=== PATIENT | female | born 1940 | race Caucasian/White ===

== ENCOUNTER 2021-01-29 13:46 | Emergency (ER) | payer MEDICARE, SELFPAY ==
--- NOTE | 2021-01-29 13:50 | ED.SKABFB ---
HPI - Skin/Abscess/Foreign Bdy General Chief complaint: Skin/Abscess/Foreign Body Stated complaint: Allergic Reaction Time Seen by Provider: 01/29/21 13:50 Source: patient and RN notes reviewed History of Present Illness HPI narrative: Patient is a 80-year-old female who presents the urgent care with complaints of allergic reaction due to the sun . Patient states that she is followed up with her doctor regarding these reactions in the past and believes it is from her amlodipine however she is continue to take the medication. States that the left eye redness and swelling with the patchy rash to the chest started on Friday and seems to be worsening. Patient states that this is happened in the past 3 different times and she is worried it skin to be her entire face with redness and swelling like it has in the past . Patient states that she has been taking Benadryl and using cold rags. Denies of any vision changes, nausea, vomiting, fever, shortness of breath or difficulty swallowing or breathing. No other acute complaints. No acute distress noted. Patient aware of the plan of care. Some parts of this dictation were generated by voice recognition software and may contain typographical and/or grammatical inaccuracies. Related Data Home Medications Medication Instructions Recorded Confirmed amiodarone 200 mg tablet 200 mg PO DAILY 04/05/20 06/09/20 apixaban 5 mg tablet 5 mg PO BID 04/05/20 06/09/20 atorvastatin 20 mg tablet 20 mg PO DAILY 04/05/20 06/09/20 citalopram 20 mg tablet 20 mg PO DAILY 04/05/20 06/09/20 clonidine HCl 0.1 mg tablet 0.1 mg PO DAILY 04/05/20 06/09/20 diltiazem HCl 180 mg 180 mg PO DAILY 04/05/20 06/09/20 capsule,extended release 24 hr furosemide 20 mg tablet 20 mg PO QAM 04/05/20 06/09/20 losartan 25 mg tablet 25 mg PO DAILY 04/05/20 06/09/20 amlodipine 2.5 mg PO DAILY 01/29/21 01/29/21 Allergies Allergy/AdvReac Type Severity Reaction Status Date / Time celecoxib Allergy sleepiness Verified 06/09/20 10:57 quinine Allergy N/A Verified 06/09/20 10:57 Review of Systems Review of Systems: Narrative: CONSTITUTIONAL: Denies fever, chills, or sweats. EYES: Denies visual changes, redness, or discharge. Reports of redness and swelling around the left eye ENT: Denies rhinorrhea, congestion, sore throat, or otalgia. CARDIOVASCULAR: Denies chest pain, palpitations, or edema. RESPIRATORY: Denies cough or dyspnea. GASTROINTESTINAL: Denies abdominal pain, nausea, vomiting, or diarrhea. GENITOURINARY: Denies dysuria or hematuria. SKIN: Reports of itchy rash to the chest MUSCULOSKELETAL: Denies back pain, joint pain, or myalgia. NEUROLOGIC: Denies headache, numbness, or weakness. All other systems reviewed are negative, except as documented in HPI. [facility] Past Medical History Medical History (Updated 01/29/21 @ 14:18 by DARELL Sue) Adhesive capsulitis of left shoulder Anxiety Arthritis Degenerative joint disease (DJD) of lumbar spine Depression Gallbladder disorder Heart attack Heart disease IBS (irritable bowel syndrome) Inflammatory arthritis Stroke Surgical History Surgical History History of total bilateral knee replacement Status post aortic coarctation stent placement Family History Family History Mother Heart disease Father Heart disease Social History Social History Smoking status: Never smoker Alcohol intake: never Comments At the time of my signature, I reviewed and agree with the nursing past medical, surgical, social, and family history. There is no relevant family history pertinent to the patient complaint. Exam Narrative: Exam Narrative: GENERAL: This is a well-nourished, well-developed patient, in no apparent distress. HEAD: normocephalic, atraumatic. EYES: PERRL. Sclera clear/white. Vision is grossly in
[2021-01-29 14:02] VITALS: BP 157/64; PULSE 59; RESP 18; O2SAT 95
[2021-01-29] MEDS: methylPREDNISolone ACETATE 80 MG/ML VIAL IM (14:16)
== END 2021-01-29 14:47 | disposition home or self-care (01) ==
PROVIDERS: Emergency Provider Nurse Practitioner Family
DX: L03.213 Periorbital cellulitis (principal); L50.0 Allergic urticaria; T46.1X5A Adverse effect of calcium-channel blockers, initial encounter; F41.9 Anxiety disorder, unspecified; M19.90 Unspecified osteoarthritis, unspecified site; M47.816 Spondylosis without myelopathy or radiculopathy, lumbar region; F32.9 Major depressive disorder, single episode, unspecified; I25.2 Old myocardial infarction; Z86.73 Personal history of transient ischemic attack (TIA), and cerebral infarction without residual deficits; Z96.653 Presence of artificial knee joint, bilateral
CPT/HCPCS: 96372; 99213; G0463; J1040

== ENCOUNTER → 2023-09-02 09:17 | Outpatient (CLI) | payer MEDICARE, SELFPAY ==
--- NOTE | ~2023-09-02 | MR_ITS ---
MRI of the cervical spine Clinical History: Radiculopathy Technique: Axial T2-weighted and gradient images, and sagittal T1-weighted, T2-weighted, and STIR ming ges were acquired. Findings: There is no fracture. Minimal grade 1 anterolisthesis of C4 over C5 present. No suspicious bone marrow signal abnormality seen. At C2-C3, there is no significant disc bulge or herniation. No spinal canal stenosis, cord compressio n, or definite neural foraminal narrowing. At C3-C4, there is osteophyte left paracentral region, with mild canal stenosis but no gerson cord com pression. There is left neural foraminal narrowing. Right neural foramen probably preserved. At C4-C5, there is mild canal stenosis without gerson cord compression or discrete disc bulge. There i s bilateral neural foraminal narrowing, and bilateral facet arthropathy. At C5-C6, there is disc osteophyte complex with canal stenosis and mild to moderate cord compression. There is bilateral neural foraminal narrowing with bilateral facet arthropathy. At C6-C7, there is disc osteophyte complex with canal stenosis and mild cord compression. There is bi lateral neural foraminal narrowing. No definite abnormal signal seen in the spinal cord. Paravertebral soft tissues are unremarkable. Impression: Advanced degenerative spondylosis particularly at C5-C6 and C6-C7, with canal stenosis and cord compr ession at these levels, as detailed above. Multilevel neural foraminal narrowing throughout cervical spine. Reviewed, dictated and finalized at [facility]. DOWN FURNACE OPERATOR Impression: Advanced degenerative spondylosis particularly at C5-C6 and C6-C7, with canal s tenosis and cord compression at these levels, as detailed above. Multilevel neural foraminal narrowing throughout cervical spine.
== END ==
PROVIDERS: PCP Family Medicine; Visit Provider Anesthesiology Pain Medicine
DX: M54.12 Radiculopathy, cervical region (principal); M43.02 Spondylolysis, cervical region; M48.02 Spinal stenosis, cervical region
CPT/HCPCS: 72141

== ENCOUNTER 2025-07-19 14:14 | Outpatient (CLI) | payer MEDICARE, SELFPAY ==
--- OUTSIDE RECORDS SUMMARY | 2025-02-28 08:20 | XMS_ITS ---
Author Organization [facility] Address [address] [place], [place] [id number] Care Team Providers Care School Curriculum Developer Name Role Phone MATT GONSALEZ Unavailable [phone] Karol Goodson Unavailable Unavailable Allergies Allergen (clinical drug ingredient) Drug/Non Drug Allergy documented on EMR Reaction Allergy Type Onset Date Status ibuprofen Advil Unknown Drug Allergy 02/02/2014 active aspirin Aspirin Unknown Drug Allergy 02/02/2014 active Motrin Unknown Drug Allergy 02/02/2014 active quinine Quinine Unknown Drug Allergy 02/02/2014 active REASON FOR VISIT Patient presents for at-risk foot care . The patient has painful toenails and calluses that are causing difficulty with ambulation and shoegear. The onset is gradual Medications Medication SIG (Take, Route, Frequency, Duration) Notes Start Date End Date Status atorvastatin 10 MG Oral Tablet ORAL atorvastatin 10 MG Oral TabletOriginal Medicationatorvastatin 10 MG Oral Tablet *Reorder from [facility] for eRx and Interaction Alerts* 7 Active citalopram 10 MG Oral Tablet ORAL citalopram 10 MG Oral TabletOriginal Medicationcitalopram 10 MG Oral Tablet *Reorder from [facility] for eRx and Interaction Alerts* 7 Active 24 HR diltiazem hydrochloride 120 MG Extended Release Oral Capsule [Cartia] ORAL 24 HR diltiazem hydrochloride 120 MG Extended Release Oral Capsule [Cartia]Original [id number] HR diltiazem hydrochloride 120 MG Extended Release Oral Capsule [Cartia] *Reorder from [facility] for eRx and Inter 7 Active apixaban 2.5 MG Oral Tablet [Eliquis] ORAL apixaban 2.5 MG Oral Tablet [Eliquis]Original Medicationapixaban 2.5 MG Oral Tablet [Eliquis] *Reorder from [facility] for eRx and Interaction Alerts* 7 Active Gabapentin 100 MG Oral Capsule ORAL gabapentin 100 MG Oral CapsuleOriginal Medicationgabapentin 100 MG Oral Capsule *Reorder from [facility] for eRx and Interaction Alerts* 7 Active pantoprazole 20 MG Delayed Release Oral Tablet ORAL pantoprazole 20 MG Delayed Release Oral TabletOriginal Medicationpantoprazole 20 MG Delayed Release Oral Tablet *Reorder from [facility] for eRx and Interaction Alerts* 7 Active Gabapentin 100 MG Capsule TAKE 1 CAPSULE BY MOUTH THREE TIMES A DAY; Duration: 30 Active Nitroglycerin 0.4 MG Tablet Sublingual Sublingual nitroglycerin 0.4 MG Sublingual TabletOriginal Medicationnitroglycerin 0.4 MG Sublingual Tablet 7 Active Gabapentin 300 MG Capsule 1 capsule Orally 2-3 times a day; Duration: 30 days Active Social History Social History Additional Details Category Social Info Options Details Migrated Social History Migrated Social History Smoking Status : Never smoked , History of tobacco use : Encounters Encounter Location Date Provider Diagnosis [facility] [address] [place] [id number] 02/28/2025 MATTRADHA BUCKLEYK Tinea unguium B35.1 ; Acquired keratosis [keratoderma] palmaris et plantaris L85.1 ; Other hereditary and idiopathic neuropathies G60.8 ; Atherosclerosis of [place] arteries of extremities with intermittent claudication, bilateral legs I70.213 ; Pain in right foot M79.671 ; Pain in left foot M79.672 and Type 2 diabetes mellitus with other diabetic neurological complication E11.49 Assessments Encounter Date Diagnosis (ICD Code) Assessment Notes Treatment Notes Treatment Clinical Notes Section Notes 02/28/2025 Tinea unguium (ICD-10 - B35.1) 02/28/2025 Acquired keratosis [keratoderma] palmaris et plantaris (ICD-10 - L85.1) 02/28/2025 Other hereditary and idiopathic neuropathies (ICD-10 - G60.8) 02/28/2025 Atherosclerosis of [place] arteries of extremities with intermittent claudication, bilateral legs (ICD-10 - I70.213) 02/28/2025 Pain in right foot (ICD-10 - M79.671) 02/28/2025 Pain in left foot (ICD-10 - M79.672) 02/28/2025 Type 2 diabetes mellitus with other diabetic neurological complication (ICD-10 - E11.49) B6 And B12: Recommend that the patient take over the counter Vitamin B6 and B12. B6 pills should be taken 2-3 times a day. Vitamin B12 should be taken once a day as an under the tongue lozenge. Patient is currently at 600mg per day. We will see how she does with 900mg per day Plan Of Treatment Treatment Notes Assessment Notes Type 2 diabetes mellitus wit h other diabetic neurological complication B6 And B12: Recommend that the patient take over the counter Vitamin B6 and B12. B6 pills should be taken 2-3 times a day. Vitamin B12 should be taken once a day as an under the tongue lozenge. Patient is currently at 600mg per day. We will see how she does with 900mg per day Next Appt Details Follow Up: 10 - 12 weeks, Re ason: At-Risk Foot care, sooner if problems develop. History and Physical Notes * HPI (History of Present Illness) Category Sub-Category Detail Notes Category Not es HPI General care Patient presents to the office for diabetic foot care. Patient states that their nails are thickened, elongated and painful. Patient states that it is aggravated by shoe gear. Onset is gradual., Patient is taking prescription blood thinners., Date last seen by Dr. Goodson was 08/2024., Initials [facility] Examination Category Sub-Category Detail Notes Category Not es Dermatologic Skin findings: Skin is thin, at rophic and lacking pedal hair Nail pathology: Nails 1, 2, 3, 4, an d 5 bilateral are elongated, thick, discolored, and dystrophic with subungual debris. They are painful to palpation Neurologic Gross sensation Grossly intact t o light touch. There is negative Tinel's sign Vascular Dorsalis pedis pulse: 1/4 bilateral Edema: No edema bilateral Capillary refill: greater than 3 secon ds Posterior tibial pulse: 0/4 bilateral Physical Examination General appearance: Alert, pleasant, well-nourished and in no acute distress Musculoskeletal Muscle Strength Muscle strength is 5/5 in regards to dorsiflexion, plantarflexion, inversion, and eversion in bilateral lower extremities Progress Notes * YOSHI PEDRO IDOB:[birth year] (84 yo F)Acc No.[id number]:02/28/2025 Patient: YOSHI RAMIREZ I Provider: Sudhir Gonsalez DPM :1940 A ge:84 Y S ex:Female Date:02/28/2025 Address:[address] [place] [address] [id number] Subjective: * Chief Complaints: * Kusum avalos presents for at-risk foot care . The patient has painful toenails and calluses that are causing difficulty with ambulation and shoegear. The onset is gradual * HPI: H PI: General care P bailey presents to the office for diabetic foot care. Patient states that their nails are thickened, elongated and painful. Patient states that it is aggravated by shoe gear. Onset is gradual., Patient is taking prescription blood thinners., Date last seen by Dr. Goodson was 08/2024., Initials [facility]. * ROS: G eneral / Constitutional: Patient denies c hills, fever, weight loss. ? M usculoskeletal: Patient denies w eakness, broken foot bone. P atient complains of a rthritis. P eripheral Vascular: Patient denies p ain / cramping in legs after exertion, ulceration of feet. S kin: Patient complains of f ungal nails, nail changes, calluses and corns. N eurologic: Patient complains of n umbness, burning/ tingling. ? * Family History: F ather: PRN - Father: :: Heart Disease < 55 yrs,,known absent , :: Arthritis,,known absent , :: Cancer,,known absent . M other: PRN - Mother: :: Arthritis,,known absent , :: Heart Disease < 55 yrs,,known absent . B rother: SIB - Brother: , :: Heart Disease < 55 yrs,,known absent , :: Cancer,,known absent . S ister: SIB - Sister: :: Cancer,,known absent , :: Heart Disease < 55 yrs,,known absent , :: Arthritis,,known absent . F amily History Verified.. * Social History: M igrated Social History: M igrated Social History: Smoking Status : Never smoked , History of tobacco use :. Social History Verified. * Medications: T akingNitroglycerin 0.4 MG Tablet Sublingual Sublingual , Notes to Pharmacist: nitroglycerin 0.4 MG Sublingual TabletOriginal Medicationnitroglycerin 0.4 MG Sublingual TabletGabapentin 100 MG Oral Capsule ORAL , Notes to Pharmacist: gabapentin 100 MG Oral CapsuleOriginal Medicationgabapentin 100 MG Oral Capsule *Reorder from [facility] for eRx and Interaction Alerts*24 HR diltiazem hydrochloride 120 MG Extended Release Oral Capsule [Cartia] ORAL , Notes to Pharmacist: 24 HR diltiazem hydrochloride 120 MG Extended Release Oral Capsule [Cartia]Original [id number] HR diltiazem hydrochloride 120 MG Extended Release Oral Capsule [Cartia] *Reorder from [facility] for eRx and Interapixaban 2.5 MG Oral Tablet [Eliquis] ORAL , Notes to Pharmacist: apixaban 2.5 MG Oral Tablet [Eliquis]Original Medicationapixaban 2.5 MG Oral Tablet [Eliquis] *Reorder from [facility] for eRx and Interaction Alerts*atorvastatin 10 MG Oral Tablet ORAL , Notes to Pharmacist: atorvastatin 10 MG Oral TabletOriginal Medicationatorvastatin 10 MG Oral Tablet *Reorder from [facility] for eRx and Interaction Alerts*citalopram 10 MG Oral Tablet ORAL , Notes to Pharmacist: citalopram 10 MG Oral TabletOriginal Medicationcitalopram 10 MG Oral Tablet *Reorder from [facility] for eRx and Interaction Alerts*pantoprazole 20 MG Delayed Release Oral Tablet ORAL , Notes to Pharmacist: pantoprazole 20 MG Delayed Release Oral TabletOriginal Medicationpantoprazole 20 MG Delayed Release Oral Tablet *Reorder from [facility] for eRx and Interaction Alerts*Gabapentin 100 MG Capsule TAKE 1 CAPSULE BY MOUTH THREE TIMES A DAY Gabapentin 300 MG Capsule 1 capsule Orally 2-3 times a day Medication List reviewed and reconciled with the patientTaking Nitroglycerin 0.4 MG Tablet Sublingual Sublingual , Notes to Pharmacist: nitroglycerin 0.4 MG Sublingual TabletOriginal Medicationnitroglycerin 0.4 MG Sublingual TabletTaking Gabapentin 100 MG Oral Capsule ORAL , Notes to Pharmacist: gabapentin 100 MG Oral CapsuleOriginal Medicationgabapentin 100 MG Oral Capsule *Reorder from [facility] for eRx and Interaction Alerts*Taking 24 HR diltiazem hydrochloride 120 MG Extended Release Oral Capsule [Cartia] ORAL , Notes to Pharmacist: 24 HR diltiazem hydrochloride 120 MG Extended Release Oral Capsule [Cartia]Original [id number] HR diltiazem hydrochloride 120 MG Extended Release Oral Capsule [Cartia] *Reorder from [facility] for eRx and InterTaking apixaban 2.5 MG Oral Tablet [Eliquis] ORAL , Notes to Pharmacist: apixaban 2.5 MG Oral Tablet [Eliquis]Original Medicationapixaban 2.5 MG Oral Tablet [Eliquis] *Reorder from [facility] for eRx and Interaction Alerts*Taking atorvastatin 10 MG Oral Tablet ORAL , Notes to Pharmacist: atorvastatin 10 MG Oral TabletOriginal Medicationatorvastatin 10 MG Oral Tablet *Reorder from [facility] for eRx and Interaction Alerts*Taking citalopram 10 MG Oral Tablet ORAL , Notes to Pharmacist: citalopram 10 MG Oral TabletOriginal Medicationcitalopram 10 MG Oral Tablet *Reorder from [facility] for eRx and Interaction Alerts*Taking pantoprazole 20 MG Delayed Release Oral Tablet ORAL , Notes to Pharmacist: pantoprazole 20 MG Delayed Release Oral TabletOriginal Medicationpantoprazole 20 MG Delayed Release Oral Tablet *Reorder from [facility] for eRx and Interaction Alerts*Taking Gabapentin 100 MG Capsule TAKE 1 CAPSULE BY MOUTH THREE TIMES A DAY Taking Gabapentin 300 MG Capsule 1 capsule Orally 2-3 times a day Medication List reviewed and reconciled with the patient * Allergies: A dvil: Allergy - Onset Date 02/02/2014spirin: Allergy - Onset Date 02/02/2014Motrin: Allergy - Onset Date 02/02/2014Quinine: Allergy - Onset Date 02/02/2014yesAllergies Verified. Objective: * Examination: P hysical Examination: General appearance: A lert, pleasant, well-nourished and in no acute distress. D ermatologic: Skin findings: S kin is thin, atrophic and lacking pedal hair. Nail pathology: N ails 1, 2, 3, 4, and 5 bilateral are elongated, thick, discolored, and dystrophic with subungual debris. They are painful to palpation. ? V ascular: Dorsalis pedis pulse: 1 /4 b ilateral. Posterior tibial pulse: 0 /4 bilateral. Capillary refill: g reater than 3 seconds. Edema: N o edema bilateral. N eurologic: Gross sensation G rossly intact to light touch. There is negative Tinel's sign. M usculoskeletal: Muscle Strength M uscle strength is 5/5 in regards to dorsiflexion, plantarflexion, inversion, and eversion in bilateral lower extremities. ? Assessment: * Assessment: 1. T inea unguium - B35.1 (Primary) 2 . A cquired keratosis [keratoderma] palmaris et plantaris - L85.1 3 . O ther hereditary and idiopathic neuropathies - G60.8 4 . A therosclerosis of [place] arteries of extremities with intermittent claudication, bilateral legs - I70.213 5 . P ain in right foot - M79.671 ? 6 . P ain in left foot - M79.672 7 . T ype 2 diabetes mellitus with other diabetic neurological complication - E11.49 Plan: * Treatment: * Preventive Medicine: Screenings: F all risk screening F all Risk Assessment: N o falls in the past year. * Follow Up: 1 0 - 12 weeks (Reason: At-Risk Foot care, sooner if problems develop.) Billing Information: * Visit Code: 34991 Office Visit, Est Pt., Level 3. * Procedure Codes: * Electronic signature of MATT GONSALEZ DPM on 07/19/2025 at 02:27 PM V BELT INSPECTOR Sign off status: Pending * Provider: Sudhir Gonsalez DPM Date: 0 02/28/2025 Generated for Bette anderson/Adithya/Gigi on: 1 02:27 PM V BELT INSPECTOR
--- OUTSIDE RECORDS SUMMARY | 2025-07-18 10:45 | XMS_ITS | Encounter Summary ---
Author Organization [facility] Address [address] [place] [address] Care Team Providers Care Radial Router Operator Name Role Phone Parthfred Karol Namrata Primary Care Provider [phone] Reason for Visit * Auth/Cert (Routine) Specialty Diagnoses / Procedures Referred By Rosendo carr Referred To Contact Home Health Services Referral ID Status Reason Start Date Expiration Date Visits Re quested Visits Authorized [id number] 1 1 Encounter Details Date Type Department Care Team (Late st Contact Info) Description 07/18/2025 10:45 AM EQUITY SALES ASSISTANT Home Care Visit [facility] [address] [place] [address] Bob Flores, VP CLINICAL VP CLINICAL HOME VISIT Social History Tobacco Use Types Packs/Day Years Used Date Smoking Tobacco: Never Passive Smoke Exposure: Never Smokeless Tobacco: Never Alcohol Use Standard Drinks/Week Comments Not Currently 0 (1 standard drink = 0.6 oz pur e alcohol) OASIS D0700: Social Isolation Answer Da te Recorded Frequency of experiencing loneliness or isolatio n Sometimes 07/11/2025 OASIS A1250: Transportation Answer Date Recorded Lack of Transportation (Medical) No 07/11/2025 Lack of Transportation (Non-Medical) No 07/11/2025 Patient Unable or Declines to Respond No 07/11/2025 OASIS B1300: Health Literacy Answer Luisito e Recorded Frequency of needing help to read materials from doctor or pharmacy Never 07/11/2025 PHQ-2 Answer Date Recorded Patient Health Questionnaire-2 Score 6 06/23/2025 AUDIT-C Answer Date Recorded Q1: How often do you have a drink containing alcohol? Never 07/04/2025 Q2: How many drinks containi ng alcohol do you have on a typical day when you are drinking? Patient does not drink Q3: How often do you have si x or more drinks on one occasion? 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[place], [place] Not on file Not on file Not on f ile documented as of this encounter Last Filed Vital Signs Vital Sign Reading Time Taken Comments Blood Pressure 142/92 07/18/2025 10:41 AM EQUITY SALES ASSISTANT Pulse 80 07/18/2025 10:41 AM EQUITY SALES ASSISTANT Temperature 36.2 C (97.2 F) 07/18/2025 10:41 AM EQUITY SALES ASSISTANT Respiratory Rate 18 07/18/2025 10:41 AM EQUITY SALES ASSISTANT Oxygen Saturation 97% 07/18/2025 10:41 AM EQUITY SALES ASSISTANT Inhaled Oxygen Concentration - - Weight - - Height - - Body Mass Index - - documented in this encounter Plan of Treatment Upcoming Encounters Date Type Department Care Team (Late st Contact Info) Description 07/20/2025 1:00 PM EQUITY SALES ASSISTANT Appointment [address] [place] [address] Bob Flores PTA 07/22/2025 9:00 AM EQUITY SALES ASSISTANT Appointment [facility] [address] [place] [address] Natasha Andrade RN [phone] (Work) 07/25/2025 9:00 AM EQUITY SALES ASSISTANT Appointment [address] [place] [address] Bob Flores VP CLINICAL 07/28/2025 11:00 AM EQUITY SALES ASSISTANT Appointment [facility] [address] [facility] [place] [address] Bob Flores, VP CLINICAL 08/01/2025 2:00 PM EQUITY SALES ASSISTANT Office Visit [facility] [place] [address] [place] [address] Amanda Singh, TAY[facility] [place] [address] [place] [address] 08/02/2025 10:00 AM EQUITY SALES ASSISTANT Appointment [place] [address] [facility] [place] [address] Bob Flores, VP CLINICAL 08/04/2025 8:00 AM EQUITY SALES ASSISTANT Appointment [place] [address] [facility] [place] [address] Sallie Hodgson, PT [address] [place] [address] 11/14/2025 2:40 PM CDT Office Visit [facility] - [facility] [address] [place] [address] Amari Garcia MD [address] [facility] [place] [address] [place] [address] 11/21/2025 1:20 PM CDT Office Visit [facility] [place] [address] [place] [address] Maria Alejandra Carreon PA-C [address] [place] [address] documented as of this encounter Visit Diagnoses Not on filedocumented in this encounter Additional Health Concerns Assessment Noted Time PHQ-9 Depression Total Score: 23 025 9:59 AM EQUITY SALES ASSISTANT documented as of this encounter Home Health Visit - Care Plan Visit Details Visit Type -VP CLINICAL - Home Visit Discipline -Physical Therapy Problems Problem Description Start Date Status Goals Interve ntions Decreased Functional Mobility Disciplines: PT 07/12/2025 Active 1 goal linked to scheduled/document ed intervention 1 goal intervention scheduled/documen vernon in this visit Collaboration of Care Disciplines: PT Collaboration for safe care. 07/12/2025 Active 2 goals linked to scheduled/document ed interventions 5 goal interventions scheduled/documen vernon in this visit PT - Fall Precautions Disciplines: PT Patient at risk for falls or has had recent fall occurrence(s). 07/12/2025 Active 1 goal linked to scheduled/document ed intervention 1 goal intervention scheduled/documen vernon in this visit Decreased Strength Disciplines: PT Decreased strength in LLE related to LLE injury. 07/12/2025 Active 1 goal linked to scheduled/document ed intervention 1 goal intervention scheduled/documen vernon in this visit Goals Goal Associated Problem Outcome Goal Met? Visit Notes Patient improves functional mobility Description: Pt to progress to independent gt in the house from living room to bathroom and back with rollator, improved LLE step length and stance by 07/25/25 Pt to progress to independent gt with rollator outside of the home for distance of 200' and greater includin g up and down one step with good balance by 08/05/25 Decreased Functional Mobility Progressing No Patient verbalizes understanding of medication regimen Description: Patient will verbalize understanding of medication regimen by 08/05/24. Collaboration of Care Met This Shift No Patient safety met through collaboration for safe care. Description: Clinicians will communicate patient care and safety needs during episode of care through 08/05/24. Collaboration of Care Met This Shift No Patient/caregiver maintains a safe environment. Description: Patient/caregiver will demonstrate ability to maintain a safe environment without injuries/falls by 08/05/25. PT - Fall Precautions Met This Shift No Patient increases strength and/or functional mobility Description: Pt to progress to independent and safe transfers and gt with rollator in the home for short distances by 07/26/25 Strength and AROM LLE to improve to functional level for pt to resume independent ADL'S as evidenced by 5 reps of repeated sit-stand by Decreased Strength Progressing No Interventions Intervention Associated Problem/Goal Status Variance Visit Notes Gait Deficit Description: Gait training. Problem:Decreased Functional Mobility Goal:Patient improves functional mobility Performed patient ambulates 60 feet x 2 rollator supervise with a step TO pattern with cues for step lenght Medication Reconciliation Description: - Review and identify unnecessary therapeutic duplication. Each clinician to perform bottle check weekly on their first visit of the week. Problem:Collaboration of Care Goal:Patient verbalizes understanding of medication regimen Performed The pateint has not had any changes in medication since last visit. Assess Vital Signs Description: Obtain and record vital signs. Report to MD . BP: systolic blood pressure <90 or >160; diastolic blood pressure <60 or >90. Temperature: >100.5 F. Pulse: <60 or >100 bpm. Respiratory Rate: <12 or >28 /min. SPO2: <90%. May check SPO2 as needed for in itial assessment or dyspnea. Problem:Collaboration of Care Goal:Patient safety met through collaboration for safe care. Performed Patients vital signs are within normal parameters on this date. Plan for Next Visit Description: Next visit plan summation Problem:Collaboration of Care Goal:Patient safety met through collaboration for safe care. Performed Next visit scheduled for friday07/20/2025 to continue poc Plan Towards Discharge Description: Document Patient progress towards discharge. Problem:Collaboration of Care Goal:Patient safety met through collaboration for safe care. Performed Patient progressing towards goals. Care Coordination Description: Clinician to review plan of care with patient/caregivers(s) . Patient/Caregiver(s) agree(s) to plan of care and agrees to participate in care. Disciplines RN, PT and VP CLINICAL Problem:Collaboration of Care Goal:Patient safety met through collaboration for safe care. Performed reviewed Physical Therapy plan of care including frequency, duration and interventions and pt in agreeance Instruct on Fall Prevention Description: Educate Patient about fall prevention. Problem:PT - Fall Precautions Goal:Patient/caregiver maintains a safe environment. Performed Patient was instructed on home safety and fall prevention techniques including 1. Keep all pathways clear. 2. Remove or tape down throw rugs. 3. Wear well fitting shoes when transferring or ambulating. 4. Use assist device when ambulating. 5. Night light at night in event of being up to toilet in night. 6. Change position slowly. 7. Stand for one or two minutes before walking. 8. All electrical cords should be along vieira and not running across pathways. 9. Non slip mats in bathroom. 10. Regular activit y. 11. Grab bars in bathroom. Call 1-800 number with problems or questions. Patient verbalised a good understanding of all instructions. Decreased Strength Description: - Therapeutic exercise. - Upgrade home exercise program. Problem:Decreased Strength Goal:Patient increases strength and/or functional mobility Performed The patient performs seated LE laqs, marching, toe pumps, heel raise, seated hip abduction and gluteal contractions cervical rotation, flexion and lateral flexion, shoulder shrugs, scapular retractions and sit ups 1 set of 10 reps, patient is instructed to perform slow controlled movements with an isometric hold in the end range. documented in this encounter Care Teams Radial Router Operator Relationship Specialty Start Date End Date Karol Goodson DO [address] [place] [address] PCP - General FAMILY PRACTICE 04/19/21 documented as of this encounter
--- NOTE | ~2025-07-19 | XR_ITS ---
XR ankle LT min 3V INDICATION: ACUTE LT ANKLE PAIN AFTER FALL 5 DAYS AGO . COMPARISON: None. FINDINGS: Frontal, lateral and oblique views of the left ankle demonstrate no acute fracture or dislocation. The ankle mortise is intact. Calcaneal spurs are noted. IMPRESSION: No acute fracture or dislocation. Reviewed, dictated and finalized at location [facility]
--- OUTSIDE RECORDS SUMMARY | 2025-07-19 14:27 | XMS_ITS | Clinical Summary ---
Author Organization [facility] Address [address] [place] [address] Care Team Providers [facility] Name Role Phone Karol Zhou Namrata ROCKWELL Primary Care Provider [phone] Allergies Active Allergy Reactions Criticality Noted Date Comments Aspirin Other (see comment) Low 02/02/2014 Was told to stop when started Eliquis. Celecoxib Headache Low 04/19/2021 Gabapentin Dizziness Low 04/19/2021 Ibuprofen Other (see comment) Low 02/02/2014 Told to avoid while on Eliquis. Lisinopril Cough Low 04/19/2021 Quinine Other (see comment) Medium 04/19/2021 Told by her Mother about bad reaction never to use Medications ACETAMINOPHEN ORIndications:Pa in Take 1 tablet by mouth daily as needed. 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 200 strip 3 024 Active albuterol sulfate HFA 108 (90 Base) MCG/ACT inhalerIndicatio ns:Shortness of breath Inhale 2 puffs into the lungs every 6 (six) hours as needed for Wheezing. 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 Devices (ROLLATOR ULTRA-LIGHT) MiscIndications: PMR (polymyalgia rheumatica) ([facility]),Lumbar radiculopathy,Ga it instability,Cerv ical radiculopathy Use to get around the house 1 each 025 Active Lancets MiscIndications: 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 ([facility]) Use to check sugars daily 100 each 3 025 Active Fluticasone-Umec lidin-Vilant (TRELEGY ELLIPTA) 200-62.5-25 MCG/ACT AEROSOL POWDER, BREATH ACTIVATEDIndicat ions:Moderate persistent asthma without complication ([facility]) Inhale 1 puff into the lungs daily. 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 One touch 100 strip 3 025 Active metFORMIN ER (GLUCOPHAGE-XR) 500 MG 24 hr tabletIndication s:Diabetes Mellitus TAKE 1 TABLET BY MOUTH EVERY DAY WITH BREAKFAST 90 tablet 1 025 Active rosuvastatin (CRESTOR) 10 MG tabletIndication s:Blood Cholesterol Abnormal TAKE 1 TABLET BY MOUTH EVERYDAY AT BEDTIME 90 tablet 1 025 Active ranolazine ER (RANEXA) 500 MG 12 hr tabletIndication s:Angina Pectoris Take 1 tablet (500 mg total) by mouth 2 (two) times daily. 180 tablet 3 025 Active fluticasone-salm eterol (ADVAIR DISKUS) 250-50 MCG/ACT inhalerIndicatio ns:Shortness of breath INHALE 1 PUFF INTO THE LUNGS TWICE A DAY 60 each 1 025 Active ELIQUIS 5 MG tabletIndication s:Anticoagulant Therapy,Atrial Fibrillation TAKE 1 TABLET BY MOUTH TWICE A DAY 60 tablet 5 025 Active nitroglycerin (NITROSTAT) 0.6 MG SL tabletIndication s:Chest Pain PLACE 1 TABLET UNDER THE TONGUE EVERY 5 MINUTES NEEDED FOR CHEST PAIN 100 tablet 025 Active losartan (COZAAR) 25 MG tabletIndication s:Hypertension TAKE 1 TABLET (25 MG TOTAL) BY MOUTH DAILY. 90 tablet 025 Active citalopram (CELEXA) 20 MG tabletIndication s:Depression TAKE 1 TABLET BY MOUTH EVERYDAY AT BEDTIME 90 tablet 2 025 Active amiodarone (PACERONE) 200 MG tabletIndication s:Atrial Dysrhythmia (Inactive) TAKE 1/2 TABLET BY MOUTH DAILY 45 tablet 025 Active furosemide (LASIX) 20 MG tabletIndication s:Diuretic Therapy TAKE 1 TABLET BY MOUTH EVERY DAY NEEDED 90 tablet 025 Active gabapentin (NEURONTIN) 300 MG capsuleIndicatio ns:Neuropathy Take 1 capsule (300 mg total) by mouth every evening. 90 capsule 025 Active traMADol (ULTRAM) 50 MG tabletIndication s:Acute Pain < 7 Day Supply Take 1 tablet (50 mg total) by mouth every 6 (six) hours as needed. Indications: Acute Pain < 7 Day Supply 20 tablet 025 Active docusate sodium (COLACE) 100 MG capsuleIndicatio ns:Constipation Take 100 mg by mouth 3 (three) times a week. Indications: Constipation 025 Active vitamin B-12 (CYANOCOBALAMIN) 1000 MCG tabletIndication s:Vitamin B12 Deficiency Take 1,000 mcg by mouth daily. Indications: Inadequate Vitamin B12 025 Active mirtazapine (REMERON) 15 MG tabletIndication s:Moderate episode of recurrent major depressive disorder (CMS/HCC) TAKE 1 TABLET BY MOUTH NIGHTLY AT BEDTIME. 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/HCC) Use to check sugars daily 1 kit 024 2024 Discontinued(D uplicate Med) ALPHA LIPOIC ACID OR Take 1 tablet by mouth daily. 2024 Discontinued(E rror) Misc. Devices (ROLLATOR ULTRA-LIGHT) MiscIndications: PMR (polymyalgia rheumatica) (HHS/HCC),Lumbar radiculopathy,Ga it instability,Cerv ical radiculopathy Use to get around the house 1 each 025 2024 Discontinued(D uplicate Med) gabapentin (NEURONTIN) 300 MG capsule Take 1 capsule (300 mg total) by mouth 3 (three) times daily. 2024 Discontinued(R eorder) predniSONE (DELTASONE) 10 mg tabletIndication s:PMR (polymyalgia rheumatica) (HHS/HCC) 3 tablets daily for 3 days, then 2 tablets daily for 3 days then 1 tablet daily for 3 days 18 tablet 025 2024 Discontinued(T herapy completed) mirtazapine (REMERON) 15 MG tabletIndication s:Depression Take 1 tablet (15 mg total) by mouth nightly at bedtime. 30 tablet 1 025 2024 Discontinued Active Problems Problem Noted Date Diagnosed Date PMR (polymyalgia rheumatica) 08/02/2024 Osteoarthritis of right shou lder, unspecified osteoarthritis type 01/15/2023 Overview (01/15/2023): Added automatically from request for surgery [id number] Lumbar radiculopathy 08/30/2021 Paroxysmal atrial fibrillation 10/20/2019 Overview (04/19/2021): 08/20/19 OV dayami Smith MD Lacunar infarction 01/18/2019 Overview (04/19/2021): Per neurology referral order 09/07/[address] Morales 09/14/18 Aortic calcification 05/12/2018 Overview (04/19/2021): 12/20/2012 CT Chest The thoracic aorta is calcified and ectatic BRIDGET (obstructive sleep apnea) 12/18/2017 Overview (04/19/2021): On CPAP Well controlled type 2 diabe maggie mellitus with peripheral neuropathy 08/20/2017 Nonintractable headache 05/16/2016 Essential hypertension with goal blood pressure less than 130/80 12/19/2015 Ectatic aorta 09/13/2014 Overview (04/19/2021): CT 12/20/12 Solitary pulmonary nodule 12/30/2012 Overview (04/19/2021): right middle lobe DJD (degenerative joint disease) of knee 012 Overview (04/19/2021): Both knees, orthopedics, Dr. Patel. Coronary artery disease invo lving qawalangin coronary artery of qawalangin heart without angina pectoris 03/06/2011 Overview (04/19/2021): LAD, stent, LVEF 65%, January 2011 Cardiac cath, 01/11/2013: 1. Left heart catheterization 2. Coronary study 3. LV gram LVgram: Normal LV systolic function without wall motion abnormalities. No mitral regurgitation. Normal LV end diastolic pressure of 10-15mmHg. Coronary Results: ( R - Dominant ) a)LM - no stenosis b)LAD - small vessel with patent proximal stent. Small jailed 1st diagonal with severe ostial stenosis. c)LCX - large vessel with large OM branches. No stenosis. d)RCA - medium sized vessel with mild proximal stenosis. PDA without stenosis. Complications: Vitamin D deficiency 03/24/2009 Overview (04/19/2021): Depressive disorder 09/13/2008 Overview (04/19/2021): Rx 1974 at [facility], nervous breakdown, and ECT. Female stress incontinence 07/10/2008 Kidney stones 07/10/2008 Encounters Date Type Department Care Team Description 07/18/2025 10:45 AM SECOND HAND Home Care Visit [place] [address] [place] [address] Bob Flores, PROCESS TANK TENDER PROCESS TANK TENDER HOME VISIT 07/18/2025 Telephone [facility] [address], [address] [place] [phone] Karol Zhou DO Problem 07/12/2025 10:00 AM SECOND HAND Home Care Visit [address] [place] [address] Sallie Hodgson, PT PT INITIAL EVALUATION 07/12/2025 Orders Only [facility] [address], [address] [place] [address] Karol Zhou DO 07/11/2025 11:00 AM SECOND HAND Home Care Visit [address] [facility] [place] [address] JohnnyRohini wilkes RN SN OASIS START OF CARE 07/11/2025 Plan of Care Documentation [address] [place] [address] 07/05/2025 Telephone [place] [address] [place] [address] [place] [address] Karol Zhou DO Advise 07/04/2025 1:00 PM SECOND HAND Office Visit [facility] [address], [address] [place] [address] Karol Zhou DO Follow Up - Diabetes (Patient here today for 6 month diabetes follow up and A1C.) 07/04/2025 Scan [facility] SRV[facility] Scanned, [facility] 07/04/2025 Travel 06/28/2025 Telephone [facility] [address], [address] [place] [address] Karol Zhou DO Question 06/27/2025 Patient Outreach [facility] [address], [address] [place] [phone] Peyton Moore, NURSING DEPARTMENT CHAIRPERSON ER F/U 06/25/2025 7:11 PM SECOND HAND - 06/26/2025 12:09 AM SECOND HAND Emergency [facility] [place] [address] Tal Fitzpatrick MD Fall Discharge Disposition: Home or Self Care (Routine Discharge) 06/25/2025 Travel 06/23/2025 10:00 AM SECOND HAND Office Visit [facility] [address], [address] [place] [address] Karol Zhou DO Depression (Patient here today for depression and agitation. ) 06/23/2025 Travel 06/22/2025 Nurse Triage [facility] [address], [address] [place] [address] Karol Zhou DO Depression (Agitation) 06/06/2025 3:00 PM SECOND HAND Office Visit [facility] - [facility] [address] [facility] [place] [phone] Amari Garcia MD Follow Up 06/06/2025 Travel 06/05/2025 Scan [facility] INFO SRVCS Scanned, [facility] Sleep Study (SCAN) 05/25/2025 Telephone [facility] [address] [place] [address] Maria Alejandra Carreon PA-C Pain 05/18/2025 Telephone [facility] [address] [place] [address] Maria Alejandra Carreon PA-C Question 05/16/2025 2:20 PM CDT Office Visit [facility] [address] [place] [address] Maria Alejandra Carreon PA-C Shoulder Pain (Right shoulder pain. Last cortisone 08/26/24.) 05/16/2025 Travel 05/09/2025 Telephone [facility] [address] [place] [address] Tyrell Brown MD Imm/Inj; Returned Call 04/20/2025 3:30 PM CDT Office Visit [facility] on [facility], [address] [address] Reggie Levy MD Follow Up (6 month) 04/20/2025 Travel from Last 3 Months Immunizations Immunization Administration Dates Next Due Fluzone High Dose (IIV, triv alent, 0.5mL) 06/23/2025 Fluzone High Dose - >Age 65 (Prefilled Syringe) 05/08/2023,05/20/2022,04/19/2021,2019,05/16/2016 Influenza (Generic) 04/13/2020, 9,05/13/2018,2016,03/21/2014,06/15/2013,05/06/2012,0 04/03/2011,05/07/2010,03/24/2009, 002,06/20/1997 Influenza Adult (Generic) 04/13/2020,05/23/2017 PFIZER COVID-19 (12+) MRNA, LNP-S, PF, BETITO-SUCROSE, 30 MCG/0.3 ML (COMIRNATY) 06/23/2025 PFIZER COVID-19 (ORIGINAL FORMULATION, PURPLE CAP) mRNA, LNP-S, PF, 30 MCG/0.3 ML DOSE 04/19/2021,10/14/2020,09/20/2020 Pneumococcal (Pneumovax 23) 03/12/2019, 6,06/20/1998 Pneumococcal (Prevnar 13) 05/21/2020,10/13/2014 Tdap (Generic) 04/04/2010 Family History Medical History Relation Comments Diabetes Father Hypertension Father Stroke Father Diabetes Mother Heart Disease Mother Hypertension Mother Stroke Mother Relation Status Comments Father (Age 77) Mother (Age 75) Social History Tobacco Use Types Packs/Day Years Used Date Smoking Tobacco: Never Passive Smoke Exposure: Never Smokeless Tobacco: Never Tobacco Cessation:Counseling Given: No Alcohol Use Standard Drinks/Week Comments Not Currently [...] Sex Assigned at Female 08/04/2024 9:55 AM SECOND HAND Legal Sex Female 4:22 PM CDT Gender Identity Female 04/12/2025 10:29 AM CDT Sexual Orientation Not on file Occupation Industry Job Start Date Job End Date 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[place], [place] Not on file Not on file Not on f ile Last Filed Vital Signs Vital Sign Reading Time Taken Comments Blood Pressure 142/92 07/18/2025 10:41 AM SECOND HAND Pulse 80 07/18/2025 10:41 AM SECOND HAND Temperature 36.2 C (97.2 F) 07/18/2025 10:41 AM SECOND HAND Respiratory Rate 18 07/18/2025 10:41 AM SECOND HAND Oxygen Saturation 97% 07/18/2025 10:41 AM SECOND HAND Inhaled Oxygen Concentration - - Weight 89.4 kg (197 lb) 07/04/2025 1:00 PM SECOND HAND Height 160 cm (5' 3) 06/25/2025 7:16 PM SECOND HAND Body Mass Index 34.9 06/25/2025 7:16 PM SECOND HAND Plan of Treatment Upcoming Encounters Date Type Department Care Team (Late st Contact Info) Description 07/20/2025 1:00 PM SECOND HAND Appointment [address] [phone] Bob Flores, PROCESS TANK TENDER 07/22/2025 9:00 AM SECOND HAND Appointment [address] [address] Natasha Andrade RN [phone] (Work) 07/25/2025 9:00 AM SECOND HAND Appointment [address] [phone] Bob Flores, PROCESS TANK TENDER 07/28/2025 11:00 AM SECOND HAND Appointment [address] [address] Bob Flores, PROCESS TANK TENDER 08/01/2025 2:00 PM SECOND HAND Office Visit [facility] [place], [facility] [address] [place] [address] Amanda Singh NP [facility] [address] [place] [address] 08/02/2025 10:00 AM SECOND HAND Appointment [facility] [address] [facility] [place] [phone] Bob Flores, PROCESS TANK TENDER 08/04/2025 8:00 AM SECOND HAND Appointment [facility] [address] [place] [phone] Sallie Hodgson, PT [address] [place] [address] 11/14/2025 2:40 PM CDT Office Visit [facility] Medical [facility] Multispec[facility]ty Care - [facility] [address] [facility], [address] [place] [address] Amari Garcia MD [address] [place] [address] [address] [place] [address] 11/21/2025 1:20 PM CDT Office Visit [facility] Orthopedic & [facility] - [place] [address] [place] [address] Maria Alejandra Carreon PA-C [address] [place] [address] Health Maintenance Due Date Last Done Comments Zoster Vaccines (1 of 2) 11/03/1991 Annual Medicare Wellness Visit 2006 RSV Immunization or 60+ Years (1 - 1-dose 75+ series) 2016 DTaP, Tdap and Td Vaccines (2 - Td or Tdap) 04/04/2020 04/04/2010 Lipid Panel 09/13/2025 09/13/2024, 12/19, 09/23/2023, Additional history exists Kidney Health Evaluation 12/20/2025 12/20/2024 COVID-19 Vaccine ( season) 2025 06/23/2025, 04/19/2021, 10/14/2020, Additional history exists Hemoglobin A1C 01/02/2026 07/04/2025, 08/2024, 08/02/2024, Additional history exists Diabetes: Retinopathy Eye Exam 11/08/2026 11/08/2024, 10/07/2022, 10/07/2022, Additional history exists Pneumococcal Vaccine: 50+ Years Completed 05/21/2020, 03/12/2019, 10/13/2014, Additional history exists Dexa Scan (General) Completed 11/09/2021 Influenza Adult Completed 06/23/2025, 04/20, 05/20/2022, Additional history exists PHQ-2 (Physician [place]) Completed 06/23/2025 Hepatitis A Vaccines Aged Out No long er eligible based on patient's age to complete this topic Meningococcal B Vaccine Aged Out No l onger eligible based on patient's age to complete this topic Meningococcal Vaccine Aged Out No darrick cyrus eligible based on patient's age to complete this topic RSV Immunizations Under 20 Months Aged Out No longer eligible based on patient's age to complete this topic Procedures Procedure Name Priority Date/Time Associated Diagnosis Comments COLLECT.CAPILLARY (FNGR,HEEL,EAR) Routine 07/04/2025 12:58 PM SECOND HAND 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 ([facility]) HEMOGLOBIN, GLYCOSYLATED Routine 07/04/2025 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 ([facility]) ECG 12-LEAD STAT 06/25/2025 9:33 PM SECOND HAND XR FEMUR LT 2V STAT 06/25/2025 9:10 PM SECOND HAND XR KNEE LT 3V STAT 06/25/2025 9:10 PM SECOND HAND XR TIBIA+FIBULA LT 2V STAT 06/25/2025 9:10 PM SECOND HAND XR ANKLE RT M3V STAT 06/25/2025 9:10 PM SECOND HAND XR ANKLE LT M3V STAT 06/25/2025 9:10 PM SECOND HAND TROPONIN, QUANT STAT 06/25/2025 9:10 PM SECOND HAND PARTIAL THROMBOPLASTIN TIME,PTT STAT 06/25/2025 9:10 PM SECOND HAND PROTHROMBIN TIME, VENOUS STAT 06/25/2025 9:10 PM SECOND HAND HC CBC AUTO W/AUTO DIFF STAT 06/25/2025 9:10 PM SECOND HAND COMPREHENSIVE METABOLIC PANEL STAT 06/25/2025 9:[address] ABD+PEL WO CON STAT 06/25/2025 8:[address] LUMB SPINE WO CON STAT 06/25/2025 8:[address] CERV SPINE WO CON STAT 06/25/2025 8:[address] HEAD WO CON STAT 06/25/2025 8:47 PM SECOND HAND SLEEP STUDY GENERIC (SCAN ORDER) 06/05/2025 ARTHROCENTESIS MAJOR JOINT W/ ULTRASOUND GUIDANCE Routine 05/16/2025 2:20 PM CDT Complete tear of right rotator cuff, unspecified whether traumatic OUS GUIDE NEEDLE PLCMT ORTHO Routine 05/16/2025 1:57 PM CDT Right shoulder pain, unspecified chronicity DIABETIC RETINOPATHY EXAM (NEGATIVE)(SCAN ORDER) Routine 11/08/2024 LIPID PANEL STAT 09/13/2024 8:43 AM SECOND HAND Coronary artery disease involving qawalangin coronary artery MICHEL (dyspnea on exertion) BONE DENSITY/DEXA Routine 11/09/2021 12: 45 PM CDT Post-menopausal from Last 3 Months or Most Recently Relevant to Health Maintenance Results * HEMOGLOBIN, GLYCOSYLATED (07/04/2025) HGB A1C 6.3 % MG-N [facility] [place] BLOOD VENOUS BLOOD SPECIMEN / Unknown 07/04/2025 Karol Zhou DO LABORATORY Final Result -N [facility] [place] [address] [place] [address], * ECG 12 lead (06/25/2025 9:33 PM SECOND HAND) ECG QT 431 [facility] ECG QTC 452 [facility] 06/25/2025 9:33 PM SECOND HAND Narrative [facility] - 06/26/2025 8:03 AM SECOND HAND [facility] Test Date: 2025-06-25 Pat Name: NEIL GARNETT Department: 41 Room: [place] [address] Gender: Female Technology Lead: : 1940 Requested By: TAL FITZPATRICK Order Number: [id number] Reading MD: Florentin Mead Measurements Intervals [place] Rate: 66 P: 94 NC: 199 QRS: -3 QRSD: 96 T: 49 QT: 431 QTc: 452 Interpretive Statements SINUS RHYTHM Compared to ECG 08/23/2024 10:25:15 No significant changes No ischemic changes Preliminary EKG Interpretation by Tal Fitzpatrick MD ND HAND Procedure Note Florentin Mead MD - 06/26/2025 [facility] [address] [place] [address] Test Date: 2025-06-25 Pat Name: NEIL GARNETT Department: 41 Room: [place] [address] Gender: Female Technology Lead: [place] : 1940 Requested By: TAL FITZPATRICK Order Number: [id number] Reading MD: Florentin Mead Measurements Intervals [place] Rate: 66 P: 94 NC: 199 QRS: -3 QRSD: 96 T: 49 QT: 431 QTc: 452 Interpretive Statements SINUS RHYTHM Compared to ECG 08/23/2024 10:25:15 No significant changes No ischemic changes Preliminary EKG Interpretation by Tal Fitzpatrick MD ND HAND us Tal Fitzpatrick MD ECG ORDERABLES Final Result [facility] * XR TIBIA+FIBULA LT 2V (06/25/2025 9:10 PM SECOND HAND) Anatomical Region Laterality Modality TibFib Radiographic Izabel ging 06/25/2025 9:39 PM SECOND HAND Impressions 06/25/2025 9:41 PM SECOND HAND IMPRESSION: No acute findings. Referred By: Interpreted By: Eliud Armstrong MD, 06/25/2025 9:39 PM Narrative 06/25/2025 9:41 PM SECOND HAND [address] [address] EXAM: XR TIBIA+FIBULA LT 2V DATE: 06/25/2025 2117 hours No comparison INDICATION: Fell yesterday, leg pain TECHNIQUE: 2 views, 4 images FINDINGS: No fracture or malalignment. Total knee arthroplasty. Procedure Note Eliud Armstrong MD - 06/25/[address] [address] EXAM: XR TIBIA+FIBULA LT 2V DATE: 06/25/20257 hours No comparison INDICATION: Fell yesterday, leg pain TECHNIQUE: 2 views, 4 images FINDINGS: No fracture or malalignment. Total knee arthroplasty. IMPRESSION: No acute findings. Referred By: Interpreted By: Eliud Armstrong MD, 06/25/2025 9:39 PM Tal Fitzpatrick MD GENERAL IMAGING Final Result * XR KNEE LT 3V (06/25/2025 9:10 PM SECOND HAND) Anatomical Region Laterality Modality Knee Radiographic Izabel ging 06/25/2025 9:38 PM SECOND HAND Impressions 06/25/2025 9:39 PM SECOND HAND IMPRESSION: Joint effusion. Referred By: Interpreted By: Eliud Armstrong MD, 06/25/2025 9:38 PM Narrative 06/25/2025 9:39 PM SECOND HAND [address] [address] EXAM: XR KNEE LT 3V DATE: 06/25/20252109 hours No comparison INDICATION: Fell yesterday, left knee pain TECHNIQUE: 3 views FINDINGS: No fracture or malalignment. There is a small joint effusion. Total knee arthroplasty with patellar resurfacing. On the oblique lateral view, no findings for loosening. Procedure Note Eliud Armstrong MD - 06/25/[address] [address] EXAM: XR KNEE LT 3V DATE: 06/25/20252109 hours No comparison INDICATION: Fell yesterday, left knee pain TECHNIQUE: 3 views FINDINGS: No fracture or malalignment. There is a small joint effusion.Total knee arthroplasty with patellar resurfacing. On the oblique lateralview, no findings for loosening. IMPRESSION: Joint effusion. Referred By: Interpreted By: Eliud Armstrong MD, 06/25/2025 9:38 PM us Tal Fitzpatrick MD GENERAL IMAGING Final Result * XR FEMUR LT 2V (06/25/2025 9:10 PM SECOND HAND) Anatomical Region Laterality Modality Femur Radiographic Izabel ging 06/25/2025 9:36 PM SECOND HAND Impressions 06/25/2025 9:37 PM SECOND HAND IMPRESSION: No acute findings. Referred By: Interpreted By: Eliud Armstrong MD, 06/25/2025 9:36 PM Narrative 06/25/2025 9:37 PM SECOND HAND [place] [address] EXAM: XR FEMUR LT 2V DATE: 06/25/2025 2108 hours No comparison INDICATION: Fell, knee pain TECHNIQUE: 2 views, 4 images FINDINGS: Normal alignment of the hip and knee. No fracture. Procedure Note Eliud Armstrong MD - 06/25/2025 [place] [address] EXAM: XR FEMUR LT 2V DATE: 06/25/2025 2108 hours No comparison INDICATION: Fell, knee pain TECHNIQUE: 2 views, 4 images FINDINGS: Normal alignment of the hip and knee. No fracture. IMPRESSION: No acute findings. Referred By: Interpreted By: Eliud Armstrong MD, 06/25/2025 9:36 PM us Tal Fitzpatrick MD GENERAL IMAGING Final Result * XR ANKLE RT M3V (06/25/2025 9:10 PM SECOND HAND) Anatomical Region Laterality Modality Ankle Radiographic Izabel ging 06/25/2025 9:45 PM SECOND HAND Impressions 06/25/2025 9:48 PM SECOND HAND IMPRESSION: No acute findings. Referred By: Interpreted By: Eliud Armstrong MD, 06/25/2025 9:45 PM Narrative 06/25/2025 9:48 PM SECOND HAND [address] [address] EXAM: XR ANKLE RT M3V DATE: 06/25/2025 2112 hours No comparison INDICATION: Fell yesterday, pain TECHNIQUE: 3 views FINDINGS: No fracture or malalignment. No arthritic change. Small Achilles and calcaneal spurs. Procedure Note Eliud Armstrong MD - 06/25/[address] [address] EXAM: XR ANKLE RT M3V DATE: 06/25/2025 2112 hours No comparison INDICATION: Fell yesterday, pain TECHNIQUE: 3 views FINDINGS: No fracture or malalignment. No arthritic change. SmallAchilles and calcaneal spurs. IMPRESSION: No acute findings. Referred By: Interpreted By: Eliud Armstrong MD, 06/25/2025 9:45 PM Tal Fitzpatrick MD GENERAL IMAGING Final Result * XR ANKLE LT M3V (06/25/2025 9:10 PM SECOND HAND) Anatomical Region Laterality Modality Ankle Radiographic Izabel ging 06/25/2025 9:41 PM SECOND HAND Impressions 06/25/2025 9:45 PM SECOND HAND IMPRESSION: Lateral swelling. Small indeterminant finding between the talus and lateral malleolus. Referred By: Interpreted By: Eliud Armstrong MD, 06/25/2025 9:41 PM Narrative 06/25/2025 9:45 PM SECOND HAND [address] [address] EXAM: XR ANKLE LT M3V DATE: 06/25/2025 2111 hours No comparison INDICATION: Fell yesterday, pain TECHNIQUE: 3 views FINDINGS: Lateral swelling with diffuse increased density could be edema or hematoma. Normal ankle alignment. On the AP view, there is a short linear density projecting between the talus and lateral malleolus. Uncertain whether this represents volume averaging with the curved margin of the talus or perhaps a tiny fracture fragment. Procedure Note Eliud Armstrong MD - 06/25/[address] [address] EXAM: XR ANKLE LT M3V DATE: 06/25/2025 2111 hours No comparison INDICATION: Fell yesterday, pain TECHNIQUE: 3 views FINDINGS: Lateral swelling with diffuse increased density could be edemaor hematoma. Normal ankle alignment. On the AP view, there is a shortlinear density projecting between the talus and lateral malleolus.Uncertain whether this represents volume averaging with the curved marginof the talus or perhaps a tiny fracture fragment. IMPRESSION: Lateral swelling. Small indeterminant finding between thetalus and lateral malleolus. Referred By: Interpreted By: Eliud Armstrong MD, 06/25/2025 9:41 PM us Tal Fitzpatrick MD GENERAL IMAGING Final Result * TROPONIN, QUANT (06/25/2025 9:10 PM SECOND HAND) TROPONIN I HIGH SENSITIVITY 53 <54 ng/L 06/25/2025 9:51 PM SECOND HAND [facility] Comment: HIGH DOSES OF BIOTIN, TROPONIN-SPECIFIC AUTOANTIBODIES, AND ANTIBODY THERAPY CONTAINING HAMA MAY INTERFERE WITH THIS TEST RESULT. CORRELATION TO CLINICAL HISTORY AND PRESENTATION RECOMMENDED. BLOOD VENOUS BLOOD SPECIMEN / Unknown 06/25/2025 9:10 PM SECOND HAND us Tal Fitzpatrick MD LABORATORY Final Result [facility] [address] [place] [address], [place] [phone] * (ABNORMAL) PROTIME/INR, VENOUS (06/25/2025 9:10 PM SECOND HAND) PROTIME 16.3(H) 10.2 - 12.9 SEC 06/25/2025 9:46 PM SECOND HAND [facility] INR 1.4 06/25/2025 9:46 PM SECOND HAND [facility] Comment: Recommended INR Therapeutic Goals: 2.0-3.0 Routine Therapy 2.5-3.5 Mechanical Prosthetic Valves (High Risk) BLOOD VENOUS BLOOD SPECIMEN / Unknown 06/25/2025 9:10 PM SECOND HAND us Tal Fitzpatrick MD LABORATORY Final Result Performing Organization Address [facility] Co de Phone Number [facility] [address] [place] [id number], [place] [phone] * PARTIAL THROMBOPLASTIN TIME,PTT (06/25/2025 9:10 PM SECOND HAND) PTT 27.8 25.1 - 36.5 SEC 06/25/2025 9:46 PM SECOND HAND [facility] BLOOD VENOUS BLOOD SPECIMEN / Unknown 06/25/2025 9:10 PM SECOND HAND us Tal Fitzpatrick MD LABORATORY Final Result Performing Organization Address City/[facility]/ZIP Co de Phone Number [facility] [address] [place] [address], [place] [phone] * (ABNORMAL) COMPREHENSIVE METABOLIC PANEL (06/25/2025 9:10 PM SECOND HAND) [facility] GLUCOSE 76 70 - 99 MG/DL 06/25/2025 9:51 PM [facility] BUN 22(H) 7 - 18 MG/DL 06/25/2025 9:51 PM [facility] CREATININE S/P/B 0.76 0.55 - 1.02 MG/DL 06/25/2025 9:51 PM [facility] SODIUM S/P/B 140 136 - 145 MMOL/L 06/25/2025 9:51 PM [facility] POTASSIUM S/P/B 4.6 3.5 - 5.1 MMOL/L 06/25/2025 9:51 PM [facility] CHLORIDE S/P/B 107 97 - 115 MMOL/L 06/25/2025 9:51 PM [facility] CO2 30.5 21 - 32 MMOL/L 06/25/2025 9:51 PM [facility] CALCIUM S/P/B 9.6 8.5 - 10.1 MG/DL 06/25/2025 9:51 PM [facility] BILIRUBIN TOTAL S/P/B 0.5 0.2 - 1.2 MG/DL 06/25/2025 9:51 PM [facility] Comment: THIS ASSAY IS NOT RECOMMENDED FOR PATIENTS UNDERGOING TREATMENT WITH ELTROMBOPAG DUE TO THE POTENTIAL FOR FALSELY ELEVATED RESULTS. TOTAL PROTEIN S/P/B 6.4 6.4 - 8.2 G/DL 06/25/2025 9:51 PM [facility] ALBUMIN S/P/B 3.0(L) 3.4 - 5.0 G/DL 06/25/2025 9:51 PM [facility] AST 18 15 - 37 U/L 06/25/2025 9:51 PM [facility] ALT 22 14 - 55 U/L 06/25/2025 9:51 PM [facility] ALKALINE PHOSPHATASE S/P/B 94 50 - 136 U/L 06/25/2025 9:51 PM [facility] ANION GAP 2.5 2 - 10 MMOL/L 06/25/2025 9:51 PM [facility] BUN CREATININE RATIO 28.8(H) 6 - 26 06/25/2025 9:51 PM [facility] A/G RATIO 0.9(L) 1.0 - 2.0 RATIO 06/25/2025 9:51 PM [facility] GFR ESTIMATE 78(L) >90 ML/MIN/1.7 3 M2 06/25/2025 9:51 PM [facility] Comment: NOTE: eGFR is not calculated for patients <18 years of age or gender unknown. This is an estimated GFR calculation using the new CKD EPI creatinine equation without race and so does not require a correction factor for race. This estimated GFR should not be used for calculating drug doses. BLOOD VENOUS BLOOD SPECIMEN / Unknown 06/25/2025 9:10 PM SECOND HAND Tal Fitzpatrick MD LABORATORY Final Result [facility] [address] [place] [address], [place] [phone] * (ABNORMAL) CBC W/DIFF AUTOMATED (06/25/2025 9:10 PM SECOND HAND) WBC 9.39 4.5 - 11.0 x10'3/uL 06/25/2025 9:45 PM [facility] RBC 5.31 4.20 - 5.40 x10'6/uL 06/25/2025 9:45 PM [facility] HGB 12.1 12.0 - 16.0 G/DL 06/25/2025 9:45 PM [facility] HCT 39.5 38.0 - 48.0 % 06/25/2025 9:45 PM [facility] MCV 74.4(L) 81.0 - 99.0 FL 06/25/2025 9:45 PM [facility] MCH 22.8(L) 27.0 - 31.0 PG 06/25/2025 9:45 PM [facility] MCHC 30.6(L) 32.0 - 36.0 G/DL 06/25/2025 9:45 PM [facility] RDW 21.5(H) 11.5 - 14.5 % 06/25/2025 9:45 PM [facility] PLT 300 130 - 400 x10'3/uL 06/25/2025 9:45 PM [facility] MPV 9.5 9.3 - 12.2 FL 06/25/2025 9:45 PM [facility] DIFFERENTIAL TYPE AUTOMATED DIFFERENTIAL 06/25/2025 10:06 PM [facility] NEUTROPHILS % 70.4 % 06/25/2025 10:06 PM [facility] LYMPHOCYTES % 16.5 % 06/25/2025 10:06 PM [facility] MONOCYTES % 11.9 % 06/25/2025 10:06 PM [facility] EOSINOPHILS 0.7 % 06/25/2025 10:06 PM [facility] BASOPHILS 0.3 % 06/25/2025 10:06 PM [facility] IMMATURE GRANS % 0.2 % 06/25/20 25 10:06 PM [facility] ABS. NEUTROPHILS 6.60 1.80 - 7.70 x10'3/uL 06/25/2025 10:06 PM [facility] ABS. LYMPHOCYTES 1.55 1.00 - 4.80 x10'3/uL 06/25/2025 10:06 PM [facility] ABS. MONOCYTES 1.12(H) 0.24 - 0.86 x10'3/uL 06/25/2025 10:06 PM [facility] ABS. EOSINOPHILS 0.07 0.04 - 0.36 x10'3/uL 06/25/2025 10:06 PM [facility] ABS. BASOPHILS 0.03 0.01 - 0.08 x10'3/uL 06/25/2025 10:06 PM [facility] ABS. IMMATURE GRANULOCYTES 0.02 0.00 - 0.49 x10'3/uL 06/25/2025 10:06 PM [facility] RBC MORPHOLOGY SLIDE REVIEWED 2024 10:06 PM [facility] ANISO 1+ 06/25/2025 10:06 PM [facility] MICRO 1+ 06/25/2025 10:06 PM [facility] PLT EST. ADEQUATE 06/25/2025 10:06 PM [facility] BLOOD VENOUS BLOOD SPECIMEN / Unknown 06/25/2025 9:10 PM [facility] Tal Fitzpatrick MD LABORATORY Final Result [facility] [address] [place] [address], * CT LUMB SPINE WO CON (06/25/2025 8:47 PM SECOND HAND) Anatomical Region Laterality Modality Spine Computed Tomogra phy 06/25/2025 9:16 PM SECOND HAND Impressions 06/25/2025 9:22 PM SECOND HAND IMPRESSION: No acute bone findings. Referred By: Interpreted By: Eliud Armstrong MD, 06/25/2025 9:16 PM Narrative 06/25/2025 9:22 PM SECOND HAND [address] [address] EXAM: CT LUMB SPINE WO CON DATE: 06/25/2025 COMPARISON: None INDICATION: Fell yesterday, back pain TECHNIQUE: Noncontrast imaging A dose lowering technique was used for this procedure, which may include, but is not limited to, dose reduction technique, automated exposure control, iterative reconstruction, ALARA (As Low As Reasonably Achievable), or Image Gently techniques. FINDINGS: No fracture or malalignment. Degenerative disc disease L2-3 through L5-S1. Multilevel facet hypertrophy and sclerosis. L1-2: Small disc bulge. L2-3: Moderate disc bulge. Mild spinal stenosis. Bilateral foraminal stenosis. L3-4: Moderate disc bulge. Mild spinal stenosis. Left foraminal stenosis. L4-5: Moderate disc bulge. Marked facet and ligamentum flavum hypertrophy. Moderate spinal stenosis. Bilateral foraminal stenosis. L5-S1: Moderate central disc herniation. Bilateral foraminal stenosis. Procedure Note Eliud Armstrong MD - 06/25/[address] [address] EXAM: CT LUMB SPINE WO CON DATE: 06/25/2025 COMPARISON: None INDICATION: Fell yesterday, back pain TECHNIQUE: Noncontrast imaging A dose lowering technique was used for this procedure, which may include,but is not limited to, dose reduction technique, automated exposurecontrol, iterative reconstruction, ALARA (As Low As ReasonablyAchievable), or Image Gently techniques. FINDINGS: No fracture or malalignment. Degenerative disc disease L2-3through L5- S1. Multilevel facet hypertrophy and sclerosis. L1-2: Small disc bulge. L2-3: Moderate disc bulge. Mild spinal stenosis. Bilateral foraminalstenosis. L3-4: Moderate disc bulge. Mild spinal stenosis. Left foraminalstenosis. L4-5: Moderate disc bulge. Marked facet and ligamentum flavumhypertrophy. Moderate spinal stenosis. Bilateral foraminal stenosis. L5-S1: Moderate central disc herniation. Bilateral foraminal stenosis. IMPRESSION: No acute bone findings. Referred By: Interpreted By: Eliud Armstrong MD, 06/25/2025 9:16 PM Tal Fitzpatrick MD CT Final Result * CT HEAD WO CON (06/25/2025 8:47 PM SECOND HAND) Anatomical Region Laterality Modality Head Computed Tomogra phy 06/25/2025 9:06 PM SECOND HAND Impressions 06/25/2025 9:10 PM SECOND HAND IMPRESSION: No hemorrhage or mass effect. Referred By: Interpreted By: Eliud Armstrong MD, 06/25/2025 9:06 PM Narrative 06/25/2025 9:10 PM SECOND HAND [facility] [address] [place], [place] [address] EXAM: CT HEAD WO CON DATE: 06/25/2025 COMPARISON: None INDICATION: Fell yesterday and hit head TECHNIQUE: Noncontrast imaging A dose lowering technique was used for this procedure, which may include, but is not limited to, dose reduction technique, automated exposure control, iterative reconstruction, ALARA (As Low As Reasonably Achievable), or Image Gently techniques. FINDINGS: No hemorrhage, mass effect, or ventricular dilation. Mild volume loss. Diffuse heterogeneous low-density in the deep white matter bilaterally. Probable small vessel disease. Stroke evaluation would require MRI. No acute bone findings. Procedure Note Eliud Armstrong MD - 06/25/[address] [address] EXAM: CT HEAD WO CON DATE: 06/25/2025 COMPARISON: None INDICATION: Fell yesterday and hit head TECHNIQUE: Noncontrast imaging A dose lowering technique was used for this procedure, which may include,but is not limited to, dose reduction technique, automated exposurecontrol, iterative reconstruction, ALARA (As Low As ReasonablyAchievable), or Image Gently techniques. FINDINGS: No hemorrhage, mass effect, or ventricular dilation. Mildvolume loss. Diffuse heterogeneous low-density in the deep white matterbilaterally. Probable small vessel disease. Stroke evaluation wouldrequire MRI. No acute bone findings. IMPRESSION: No hemorrhage or mass effect. Referred By: Interpreted By: Eliud Armstrong MD, 06/25/2025 9:06 PM Tal Fitzpatrick MD CT Final Result * CT CERV SPINE WO CON (06/25/2025 8:47 PM SECOND HAND) Anatomical Region Laterality Modality Spine Computed Tomogra phy 06/25/2025 9:10 PM SECOND HAND Impressions 06/25/2025 9:15 PM SECOND HAND IMPRESSION: No acute bone findings. Referred By: Interpreted By: Eluid Armstrong MD, 06/25/2025 9:10 PM Narrative 06/25/2025 9:15 PM SECOND HAND [address] [address] EXAM: CT CERV SPINE WO CON DATE: 06/25/2025 COMPARISON: None INDICATION: Fell, back pain TECHNIQUE: Noncontrast imaging A dose lowering technique was used for this procedure, which may include, but is not limited to, dose reduction technique, automated exposure control, iterative reconstruction, ALARA (As Low As Reasonably Achievable), or Image Gently techniques. FINDINGS: No fracture. 3 mm of anterior spondylolisthesis of C4 on C5 is probably due to degenerative changes with the posterior elements appearing intact. Reduced detail in the lower levels from body habitus. Degenerative disc disease at C5-6 and C6-7. Multilevel facet hypertrophy and sclerosis. Multilevel foraminal stenosis. Mild spinal stenosis at C6-7. Normal prevertebral soft tissue thickness. Bilateral carotid artery calcifications, left more severe than right. Procedure Note Eliud Armstrong MD - 06/25/[address] [address] EXAM: CT CERV SPINE WO CON DATE: 06/25/2025 COMPARISON: None INDICATION: Fell, back pain TECHNIQUE: Noncontrast imaging A dose lowering technique was used for this procedure, which may include,but is not limited to, dose reduction technique, automated exposurecontrol, iterative reconstruction, ALARA (As Low As ReasonablyAchievable), or Image Gently techniques. FINDINGS: No fracture. 3 mm of anterior spondylolisthesis of C4 on C5 isprobably due to degenerative changes with the posterior elements appearingintact. Reduced detail in the lower levels from body habitus.Degenerative disc disease at C5-6 and C6- 7. Multilevel facet hypertrophyand sclerosis. Multilevel foraminal stenosis. Mild spinal stenosis atC6-7. Normal prevertebral soft tissue thickness. Bilateral carotidartery calcifications, left more severe than right. IMPRESSION: No acute bone findings. Referred By: Interpreted By: Eliud Armstrong MD, 06/25/2025 9:10 PM us Tal Fitzpatrick MD CT Final Result * CT ABD+PEL WO CON (06/25/2025 8:47 PM SECOND HAND) Anatomical Region Laterality Modality Abdomen Computed Tomogra phy 06/25/2025 9:27 PM SECOND HAND Impressions 06/25/2025 9:36 PM SECOND HAND IMPRESSION: 1. Bilateral lung abnormalities. Indeterminate right middle lobe pulmonary nodule. CT follow-up in 12 months if patient is high risk. 2. Fatty liver. 3. Nonobstructing right kidney stone. 4. Indeterminant small gas collections within the vagina, cervix, and uterus. Referred By: Interpreted By: Eliud Armstrong MD, 06/25/2025 9:27 PM Narrative 06/25/2025 9:36 PM SECOND HAND [address] [address] EXAM: CT ABD+PEL WO CON DATE: 06/25/2025 COMPARISON: None INDICATION: Fell yesterday TECHNIQUE: Noncontrast imaging A dose lowering technique was used for this procedure, which may include, but is not limited to, dose reduction technique, automated exposure control, iterative reconstruction, ALARA (As Low As Reasonably Achievable), or Image Gently techniques. FINDINGS: Mild bronchiectasis and associated lung opacification in the inferior lingula. Similar findings in the inferior right middle lobe. There is a partially visualized right middle lobe pulmonary nodule measuring 5 mm. Possible dependent atelectasis in both posterior lower lobes. Mitral valve annulus calcifications. Coronary artery calcifications. Aortic valve calcifications. Fatty infiltration of liver. Normal noncontrast appearance of the spleen, adrenal glands, and partially fatty replaced pancreas. Cholecystectomy. Normal common bile duct diameter. There is a 7 mm nonobstructing stone in the lower right kidney. No urinary tract obstruction. Normal urinary bladder. There are small gas collections within the vagina, cervix, and uterine cavity. Uncertain etiology or significance. Mild descending and sigmoid diverticulosis. 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 Calcified or otherwise dense medicine tablets in the cecum. Normal appearance of the stomach and small bowel. No free fluid. Diffuse arterial calcifications with no aneurysm of the aorta. SMA and left renal artery stenosis. Lumbar spine findings are reported separately. Procedure Note Eliud Armstrong MD - 06/25/2025 [facility] [address] [place], [place] [address] EXAM: CT ABD+PEL WO CON DATE: 06/25/2025 COMPARISON: None INDICATION: Fell yesterday TECHNIQUE: Noncontrast imaging A dose lowering technique was used for this procedure, which may include,but is not limited to, dose reduction technique, automated exposurecontrol, iterative reconstruction, ALARA (As Low As ReasonablyAchievable), or Image Gently techniques. FINDINGS: Mild bronchiectasis and associated lung opacification in theinferior lingula. Similar findings in the inferior right middle lobe.There is a partially visualized right middle lobe pulmonary nodulemeasuring 5 mm. Possible dependent atelectasis in both posterior lowerlobes. Mitral valve annulus calcifications. Coronary arterycalcifications. Aortic valve calcifications. Fatty infiltration of liver. Normal noncontrast appearance of the spleen,adrenal glands, and partially fatty replaced pancreas. Cholecystectomy.Normal common bile duct diameter. There is a 7 mm nonobstructing stone in the lower right kidney. Nourinary tract obstruction. Normal urinary bladder. There are small gascollections within the vagina, cervix, and uterine cavity. Uncertainetiology or significance. Mild descending and sigmoid diverticulosis. 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 Calcified or otherwise dense medicine tablets in the cecum.Normal appearance of the stomach and small bowel. No free fluid. Diffuse arterial calcifications with no aneurysm of the aorta. SMA andleft renal artery stenosis. Lumbar spine findings are reportedseparately. IMPRESSION: 1. Bilateral lung abnormalities. Indeterminate right middle lobepulmonary nodule. CT follow-up in 12 months if patient is high risk. 2. Fatty liver. 3. Nonobstructing right kidney stone. 4. Indeterminant small gas collections within the vagina, cervix, anduterus. Referred By: Interpreted By: Eliud Armstrong MD, 06/25/2025 9:27 PM Tal Fitzpatrick MD CT Final Result * SLEEP STUDY GENERIC (SCAN ORDER) (06/05/2025) 06/05/2025 [facility] Scanned SCANNING Final Resu lt * ARTHROCENTESIS MAJOR JOINT W/ ULTRASOUND GUIDANCE (05/16/2025 2:20 PM CDT) Narrative Maria Alejandra Carreon PA-C - 05/16/2025 2:20 PM CDT Maria Alejandra Carreon PA-C 05/16/2025 2:53 PM Right subacromial cortisone injection on 05/16/2025 2:20 PM Indications: pain Details: 25 G needle, ultrasound-guided lateral approach Medications: (40 mg triamcinolone mixed with 3 cc 2% lidocaine without epi) Outcome: tolerated well, no immediate complications Procedure, treatment alternatives, risks and benefits explained, specific risks discussed. Consent was given by the patient. Patient was prepped and draped in the usual sterile fashion. us Maria Alejandra Carreon PA-C PROCEDURE/MINOR SURGICAL OR DERABLES Final Result * OUS GUIDE NEEDLE PLCMT ORTHO (05/16/2025 1:57 PM CDT) Anatomical Region Laterality Modality Ultrasound 05/16/2025 12:5 1 PM CDT Narrative 05/16/2025 12:51 PM CDT This report does not contain a radiologist's interpretation. Please review associated procedure and/or operative report. Procedure Note Steven Phipps, - 05/16/2025 This report does not contain a radiologist's interpretation. Please review associated procedure and/or operative report. us Maria Alejandra Carreon PA-C ULTRASOUND Final Resul t * DIABETIC RETINOPATHY EXAM (NEGATIVE) (11/08/2024) [facility] Scanned SCANNING Final Resu lt [facility] * LIPID PANEL (09/13/2024 8:43 AM SECOND HAND) CHOLESTEROL 151 <200 MG/DL 09/13/2024 9:25 AM [facility] TRIGLYCERIDES 63 <150 MG/DL 09/13/2024 9:25 AM [facility] HDL 87 >40.0 MG/DL 09/13/2024 9:25 AM [facility] LDL (CALCULATED) 51 <100 MG/DL 09/13/19 9:25 AM [facility] NON HDL CHOLESTEROL 64 <130 MG/DL 09/13 9:25 AM [facility] CHOL/HDL RATIO 1.7 0.0 - 4.5 09/13/2024 9:25 AM [facility] VLDL CALCULATION 13 5 - 55 MG/DL 09/13/2024 9:25 AM [facility] LIPID INTERPRETATION 09/13/2024 9:25 AM [facility] Comment: [facility] CONCENSUS REPORT RECOMMENDATIONS: ADULT CHILD LOW RISK: CHOLESTEROL <200 <170 TRIGLYCERIDE <150 --- HDL >=60 --- LDL <100 <110 BORDERLINE: CHOLESTEROL 200-239 170-199 TRIGLYCERIDE 150-199 --- HDL 40-59 --- LDL 100-159 110-129 HIGH RISK: CHOLESTEROL >=240 >=200 TRIGLYCERIDE >=200 --- HDL <40 --- LDL >=160 >=130 09/13/2024 8:43 AM SECOND HAND us Kindra Dalton MD LABORATORY Final Result [facility] [address] [place] [address], [place] [phone] * BONE DENSITY/DEXA (11/09/2021 12:45 PM CDT) Anatomical Region Laterality Modality Bone Mammography 11/09/2021 1:24 PM CDT Impressions 11/09/2021 1:26 PM CDT IMPRESSION: WHO Classification: osteopenia. FRAX: 3.6% chance of hip fracture and 14% chance of major osteoporotic fracture over the next 10 years. Referred By: KAROL ZHOU Interpreted By: Barrington Marquis MD, 11/09/2021 1:24 PM Narrative 11/09/2021 1:26 PM CDT Examination: Bone Density Axial Exam Date/Time: 11/09/2021 12:20 PM Reason For Exam: Postmenopausal Comparison: None Findings: DEXA bone densitometry The bone mineral density (BMD) was determined by dual-energy x-ray absorptiometry, the results are as follows: AP Lumbar Spine L1 through L4 BMD Patient (GM/SQCM): 1.018 T-Score (Standard deviations from young adult peak bone density): -0.3 Right femoral neck: BMD Patient (GM/SQCM): 0.644 T-Score (Standard deviations from young adult peak bone density): -1.8 Total Left femur: BMD Patient (GM/SQCM): 0.825 T-Score (Standard deviations from young adult peak bone density): -1.0 Recommendations: All patients should ensure an adequate intake of dietary calcium and vitamin D. The NOF recommend adults under the age of 50 need 1000 mg of calcium and 400-800 IU of vitamin D daily. Effective therapy for the prevention and treatment of osteoporosis include biphosphonates. Follow-up: People with diagnosed cases of osteoporosis or at high risk for fracture should have regular bone mineral density test. For patients eligible for Medicare, routine testing is allowed once every 2 years. Testing frequency can be increased to one year for patients who have rapidly progressing disease, those who are receiving or discontinuing medical therapy to restore bone mass, or have additional risk factors. Procedure Note Barrington Marquis MD - 11/09/2021 Examination: Bone Density Axial Exam Date/Time: 11/09/2021 12:20 PM Reason For Exam: Postmenopausal Comparison: None Findings: DEXA bone densitometry The bone mineral density (BMD) was determined bydual-energy x-ray absorptiometry, the results are as follows: AP Lumbar Spine L1 through L4 BMD Patient (GM/SQCM): 1.018 T-Score (Standard deviations from young adult peak bonedensity): -0.3 Right femoral neck: BMD Patient (GM/SQCM): 0.644 T-Score (Standard deviations from young adult peak bonedensity): -1.8 Total Left femur: BMD Patient (GM/SQCM): 0.825 T-Score (Standard deviations from young adult peak bonedensity): -1.0 Recommendations: All patients should ensure an adequate intake of dietary calcium andvitamin D. The NOF recommend adults under the age of 50 need 1000 mg ofcalcium and 400-800 IU of vitamin D daily. Effective therapy for theprevention and treatment of osteoporosis include biphosphonates. Follow-up: People with diagnosed cases of osteoporosis or at high risk for fractureshould have regular bone mineral density test. For patients eligible forMedicare, routine testing is allowed once every 2 years. Testing frequencycan be increased to one year for patients who have rapidly progressingdisease, those who are receiving or discontinuing medical therapy torestore bone mass, or have additional risk factors. IMPRESSION: WHO Classification: osteopenia. FRAX: 3.6% chance of hip fracture and 14% chance of major osteoporoticfracture over the next 10 years. Referred By: KAROL ZHOU Interpreted By: Barrington Marquis MD, 11/09/2021 1:24 PM Karol Zhou DO DEXA Final Result from Last 3 Months or Most Recently Relevant to Health Maintenance Insurance [employer] MEDICARE Advance Directives * Full Code (Latest Code Status on File) Date Activated Date Inactivated Comments 07/12/2025 10:54 AM * Full Code Date Activated Date Inactivated Comments 09/13/2024 10:25 AM 09/13/2024 4:14 PM * Full Code Date Activated Date Inactivated Comments 01/30/2022 12:51 PM 01/30/2022 6:36 PM Care Teams Mba Internship Relationship Specialty Start Date End Date Karol Zhou DO [address] [place] [address] PCP - General FAMILY PRACTICE 04/19/21
--- OUTSIDE RECORDS SUMMARY | 2025-07-19 14:27 | XMS_ITS | Encounter Summary ---
Author Organization [facility] Address [address] [place] [address] Care Team Providers Care Crop Specialist Name Role Phone Karol Goodson DO Primary Care Provider [phone] Reason for Visit * Reason Onset Date Comments Problem 07/18/2025 Encounter Details Date Type Department Care Team (Late st Contact Info) Description 07/18/2025 Telephone [facility] Family Medicine - [place] [address] [place] [phone] Karol Goodson DO [address] [place] [address] Problem Social History Tobacco Use Types Packs/Day Years [...] Sex Assigned at Female 08/04/2024 9:55 AM FEATURES REPORTER Legal Sex Female 4:22 PM CDT Gender Identity Female 04/12/2025 10:29 AM CDT Sexual Orientation Not on file Occupation Industry Job Start Date Job End Date 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 She doesn't know the name of the facility. She plans on going this afternoon. [phone] URES REPORTER documented in this encounter Plan of Treatment Upcoming Encounters Date Type Department Care Team (Late st Contact Info) Description 07/20/2025 1:00 PM FEATURES REPORTER Appointment [facility] Home [facility] [address] [place] [address] [place] [address] Bob Flores PTA 07/22/2025 9:00 AM FEATURES REPORTER Appointment [facility] [place] [address] [place] [address] Natasha Andrade, RN [phone] (Work) 07/25/2025 9:00 AM FEATURES REPORTER Appointment [address] [place] [address] Bob Flores, FRUIT AND VEGETABLE INSPECTOR 07/28/2025 11:00 AM FEATURES REPORTER Appointment [address] [place] [address] Bob Flores, FRUIT AND VEGETABLE INSPECTOR 08/01/2025 2:00 PM FEATURES REPORTER Office Visit [facility] THREE [facility] [address] [place] [address] Amanda Singh, ATHLETIC INSTRUCTOR Three [facility] [address] [place] [address] 08/02/2025 10:00 AM FEATURES REPORTER Appointment [address] [place] [address] Bob Flores, FRUIT AND VEGETABLE INSPECTOR 08/04/2025 8:00 AM FEATURES REPORTER Appointment [address] [place] [address] Sallie Hodgson, PT [address] [place] [address] 11/14/2025 2:40 PM CDT Office Visit [facility]ispecialty Care - [facility] [address] [place] [address] Amari Garcia MD [address] [facility] [place] [address] [place] [address] 11/21/2025 1:20 PM CDT Office Visit [facility] Orthopedic & Sports Medicine - [address] [place] [address] Maria Alejandra Carreon PA-C [address] [place] [address] documented as of this encounter Visit Diagnoses Not on filedocumented in this encounter Additional Health Concerns Assessment Noted Time PHQ-9 Depression Total Score: 23 025 9:59 AM FEATURES REPORTER documented as of this encounter Care Teams Crop Specialist Relationship Specialty Start Date End Date Karol Goodson DO [address] [place], [place] [id number] PCP - General FAMILY PRACTICE 04/19/21 documented as of this encounter
--- OUTSIDE RECORDS SUMMARY | 2025-07-19 14:27 | XMS_ITS | Clinical Summary ---
Author Organization [facility] Address [address] [place] [address] Care Team Providers Care Bacteriology Research Assistant Name Role Phone Angella Campa MD Primary Care Provider [phone] Allergies Active Allergy Reactions Criticality Noted Date Comments Celecoxib Unknown 02/13/2021 Pt states her doctor says she can't take it anymore. She does not remember the reaction Quinine Unknown 02/13/2021 Her mother told her that she couldn't walk when she was little and that the doctor said it was the quinine that did it Medications ondansetron (ZOFRAN) 4 mg tablet Take 1 tablet (4 mg total) by mouth every 6 (six) hours 6 tablet 02/13/2021 Active Surgical History Surgery Date Site/Laterality Comments APPENDECTOMY HERNIA REPAIR CHOLECYSTECTOMY CARDIAC SURGERY CARDIAC STENT PLACEMENT 2 Medical History Medical History Date Comments Coronary artery disease Atrial fibrillation (HCC) Hyperlipidemia Hypertension Type 2 diabetes mellitus Social History Tobacco Use Types Packs/Day Years Used Date Smoking Tobacco: Never Alcohol Use Standard Drinks/Week Comments Never 0 (1 standard drink = 0.6 oz pur e alcohol) Personal Safety Answer Date Recorded Getting School Help Needed Not on file 10/03 Comments Unknown Sex and Gender Information Value Date Recorded Sex Assigned at Not on file Legal Sex Female 9:47 PM HOT DIE PICKER Gender Identity Not on file Sexual Orientation Not on file Last Filed Vital Signs Vital Sign Reading Time Taken Comments Blood Pressure 158/77 02/13/2021 9:11 PM CDT Pulse 57 02/13/2021 9:11 PM CDT Temperature 36.3 C (97.4 F) 02/13/2021 6:26 PM CDT Respiratory Rate 18 02/13/2021 9:11 PM CDT Oxygen Saturation 97% 02/13/2021 9:11 PM CDT Inhaled Oxygen Concentration - - Weight 87.3 kg (192 lb 7.4 oz) 02/13/2021 6:26 P M CDT Height 160 cm (5' 3) 02/13/2021 6:26 PM CDT Body Mass Index 34.09 02/13/2021 6:26 PM CDT Plan of Treatment Not on file Insurance MEDIC[facility] Care Teams Bacteriology Research Assistant Relationship Specialty Start Date End Date Angella Campa MD [address] [place] [address] PCP - General Family Medicine 02/13/21
--- OUTSIDE RECORDS SUMMARY | 2025-07-19 14:27 | XMS_ITS | Encounter Summary ---
Author Organization [facility] Address [address] [place] [address] Care Team Providers Care Transport Tank Technician Name Role Phone Karol Goodson DO Primary Care Provider [phone] Encounter Details Date Type Department Care Team (Late st Contact Info) Description 07/12/2025 Orders Only [facility] Family Medicine - [place] [address] [place] [phone] Karol Goodson DO [address] [place], [place] [phone] Social History Tobacco Use Types Packs/Day Years [...] Sex Assigned at Female 08/04/2024 9:55 AM DIRECT MAIL COORDINATOR Legal Sex Female 4:22 PM CDT Gender Identity Female 04/12/2025 10:29 AM CDT Sexual Orientation Not on file Occupation Industry Job Start Date Job End Date 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 CT MAIL COORDINATOR documented in this encounter Plan of Treatment Upcoming Encounters Date Type Department Care Team (Late st Contact Info) Description 07/20/2025 1:00 PM DIRECT MAIL COORDINATOR Appointment [facility] [place] [address] [place] [address] Bob Flores, REGISTERED APPRAISER 07/22/2025 9:00 AM DIRECT MAIL COORDINATOR Appointment [facility] [place] [address] [place] [address] Natasha Andrade RN [phone] (Work) 07/25/2025 9:00 AM DIRECT MAIL COORDINATOR Appointment [facility] [place] [address] [place] [address] Bob Flores, REGISTERED APPRAISER 07/28/2025 11:00 AM DIRECT MAIL COORDINATOR Appointment [place] [address] [place] [address] Bob Flores, REGISTERED APPRAISER 08/01/2025 2:00 PM DIRECT MAIL COORDINATOR Office Visit [facility] [facility] [place] [address] [place] [address] Amanda Singh, ROTARY FURNACE OPERATOR Three [facility] [place] [address] [place] [address] 08/02/2025 10:00 AM DIRECT MAIL COORDINATOR Appointment [place] [address] [address] Bob Flores, REGISTERED APPRAISER 08/04/2025 8:00 AM DIRECT MAIL COORDINATOR Appointment [address] [place] [address] Sallie Hodgson, PT [address] [place] [address] 11/14/2025 2:40 PM CDT Office Visit [facility] Mult[facility]ialty Care - [facility] [address] [place] [address] Amari Garcia MD 3[address] [facility] [place] [address] [place] [address] 11/21/2025 1:20 PM CDT Office Visit [facility] Orthopedic & Sports Medicine - [place] [address] [place] [address] Maria Alejandra Carreon PA-C [address] [place] [address] Scheduled Orders Name Type Priority Associated Diagnoses Orde r Schedule XR ANKLE LT M3V Imaging [facility] Fall, subsequent encounter Acute left ankle pain Expected: 07/12/2025, Expires: 07/12/2026 documented as of this encounter Visit Diagnoses Diagnosis Fall, subsequent encounter- Primary Acute left ankle pain documented in this encounter Additional Health Concerns Assessment Noted Time PHQ-9 Depression Total Score: 23 025 9:59 AM DIRECT MAIL COORDINATOR documented as of this encounter Care Teams Transport Tank Technician Relationship Specialty Start Date End Date Karol Goodson DO [address] [place] [address] PCP - General FAMILY PRACTICE 04/19/21 documented as of this encounter
--- OUTSIDE RECORDS SUMMARY | 2025-07-19 14:27 | XMS_ITS | Encounter Summary ---
Author Organization [facility] Address [address] [place] [address] Care Team Providers Care Olive Knocker Name Role Phone Karol Goodson Primary Care Provider [phone] Encounter Details Date Type Department Care Team (Late st Contact Info) Description 01/24/2022 Abstract [facility], [address] [address] Mac Boyce MA Social History Tobacco Use Types Packs/Day Years Used Date Smoking Tobacco: Never Smokeless Tobacco: Never Alcohol Use Standard Drinks/Week Comments Not Currently 0 (1 standard drink = 0.6 oz pur e alcohol) PHQ-2 Answer Date Recorded PHQ-2 Score - If the patient scores above 3, please move on to questions 3-9 6 10/18/2021 Comments No Sex and Gender Information Value Date Recorded Sex Assigned at Female 08/04/2024 9:55 AM INVESTMENT BANKING ANALYST Legal Sex Female 4:22 PM CDT Gender Identity Female 04/12/2025 10:29 AM CDT Sexual Orientation Not on file Occupation Industry Job Start Date Job End Date 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 No / Unsure 01/23/2022 12:26 PM CDT documented as of this encounter Plan of Treatment Upcoming Encounters Date Type Department Care Team (Late st Contact Info) Description 07/20/2025 1:00 PM INVESTMENT BANKING ANALYST Appointment [address] [place] [phone] Bob Flores, CAPITAL PROJECT ENGINEER 07/22/2025 9:00 AM INVESTMENT BANKING ANALYST Appointment [address] [phone] Natasha Andrade, RN [phone] (Work) 07/25/2025 9:00 AM INVESTMENT BANKING ANALYST Appointment [address] [place] [address] Bob Flores, CAPITAL PROJECT ENGINEER 07/28/2025 11:00 AM INVESTMENT BANKING ANALYST Appointment [address] [phone] Bob Flores, CAPITAL PROJECT ENGINEER 08/01/2025 2:00 PM INVESTMENT BANKING ANALYST Office Visit [facility] THREE [facility] [address] [place] [address] Amanda Singh, TAYLOR Three [facility] [address] [place] [address] 08/02/2025 10:00 AM INVESTMENT BANKING ANALYST Appointment [address] [place] [address] Bob Flores, CAPITAL PROJECT ENGINEER 08/04/2025 8:00 AM INVESTMENT BANKING ANALYST Appointment [address] [place] [address] Sallie Hodgson, PT [address] [place] [address] 11/14/2025 2:40 PM CDT Office Visit [facility] Medical [facility] Multispecialty Care - [facility] [address] [place] [address] Amari Garcia MD [address] [facility] [address] [place] [address] [place] [address] 11/21/2025 1:20 PM CDT Office Visit [facility] Orthopedic & Sports Medicine - [place] [address] [place], [place] [address] [phone] Maria Alejandra Carreon, ELBA [address] [place] [address] documented as of this encounter Procedures Procedure Name Priority Date/Time Associated Diagnosis Comments LIPID PANEL Routine 06/18/2022 BUN (OUTSIDE LAB) Routine 02/04/2022 HEMATOCRIT Routine 02/04/2022 CREATININE Routine 02/04/2022 PROTIME (OUTSIDE LAB) Routine 01/23/2022 CBC (OUTSIDE LAB) Routine 01/23/2022 BASIC METABOLIC PANEL Routine 01/23/2022 documented in this encounter Results * LIPID PANEL (06/18/2022) CHOLESTEROL 177 HDL 81 TRIGLYCERIDES 124 LDL (CALCULATED) 75 06/18/2022 us Default History Genericprovider LABORATORY Final Result * HEMATOCRIT (02/04/2022) HCT 40.8 02/04/2022 us Doc [facility] LABORATORY Final Result * CREATININE (02/04/2022) CREATININE S/P/B 0.91 0.5 - 1.0 EGFR NON-AFR. AMER. 64 <=90 02/04/2022 us Doc [facility] LABORATORY Final Result * BUN (OUTSIDE LAB) (02/04/2022) BUN 21 02/04/2022 us Doc [facility] LAB-OUTSIDE/ABSTRACTED Final Result * PROTIME (OUTSIDE LAB) (01/23/2022) PROTIME 10.4 INR 1.0 01/23/2022 us Doc [facility] LAB-OUTSIDE/ABSTRACTED Final Result * BASIC METABOLIC PANEL (01/23/2022) SODIUM S/P/B 141 POTASSIUM S/P/B 4.8 CO2 24 CHLORIDE S/P/B 102 GLUCOSE 75 mg/dL CALCIUM S/P/B 10.1 BUN 20 CREATININE S/P/B 0.79 0.5 - 1.0 EGFR NON-AFR. AMER. 76 <=90 01/23/2022 us Doc [facility] LABORAT[facility] Edited Resul t - Final * CBC (OUTSIDE LAB) (01/23/2022) WBC 7.9 HGB 13.4 HCT 40.8 PLT 308 01/23/2022 us Doc [facility] LAB-OUTSIDE/ABSTRACTED Final Result documented in this encounter Visit Diagnoses Not on filedocumented in this encounter Additional Health Concerns Infection Onset Date Last Indicated Resolved Time COVID-19 Rule Out 03/08/2024 03/08/2024 03/09/2024 1:57 PM CDT COVID-19 Confirmed 03/08/2024 03/08/2024 12:33 AM CDT Assessment Noted Time PHQ-9 Depression Total Score: 17 10/18/ 022 8:38 AM CDT documented as of this encounter Care Teams Olive Knocker Relationship Specialty Start Date End Date Karol Goodson DO [address] [place] [address] PCP - General FAMILY PRACTICE 04/19/21 documented as of this encounter
--- OUTSIDE RECORDS SUMMARY | 2025-07-19 14:27 | XMS_ITS | Patient Health Record ---
Author Organization [facility] Address [address] [place], [place] [id number] Care Team Providers Care Development Technical Lead Name Role Phone MATT NÚÑEZ Unavailable [phone] Karol Goodson Unavailable Unavailable Allergies Allergen (clinical drug ingredient) Drug/Non Drug Allergy documented on EMR Reaction Allergy Type Onset Date Status ibuprofen Advil Unknown Drug Allergy 02/02/2014 active aspirin Aspirin Unknown Drug Allergy 02/02/2014 active Motrin Unknown Drug Allergy 02/02/2014 active quinine Quinine Unknown Drug Allergy 02/02/2014 active Reason For Referral No Information Medications Medication SIG (Take, Route, Frequency, Duration) Notes Start Date End Date Status pantoprazole 20 MG Delayed Release Oral Tablet ORAL pantoprazole 20 MG Delayed Release Oral TabletOriginal Medicationpantoprazole 20 MG Delayed Release Oral Tablet *Reorder from [employer] for eRx and Interaction Alerts* 7 Active Gabapentin 100 MG Capsule TAKE 1 CAPSULE BY MOUTH THREE TIMES A DAY; Duration: 30 Active atorvastatin 10 MG Oral Tablet ORAL atorvastatin 10 MG Oral TabletOriginal Medicationatorvastatin 10 MG Oral Tablet *Reorder from [employer] for eRx and Interaction Alerts* 7 Active citalopram 10 MG Oral Tablet ORAL citalopram 10 MG Oral TabletOriginal Medicationcitalopram 10 MG Oral Tablet *Reorder from [employer] for eRx and Interaction Alerts* 7 Active 24 HR diltiazem hydrochloride 120 MG Extended Release Oral Capsule [Cartia] ORAL 24 HR diltiazem hydrochloride 120 MG Extended Release Oral Capsule [Cartia]Original [id number] HR diltiazem hydrochloride 120 MG Extended Release Oral Capsule [Cartia] *Reorder from [employer] for eRx and Inter 7 Active apixaban 2.5 MG Oral Tablet [Eliquis] ORAL apixaban 2.5 MG Oral Tablet [Eliquis]Original Medicationapixaban 2.5 MG Oral Tablet [Eliquis] *Reorder from [employer] for eRx and Interaction Alerts* 7 Active Nitroglycerin 0.4 MG Tablet Sublingual Sublingual nitroglycerin 0.4 MG Sublingual TabletOriginal Medicationnitroglycerin 0.4 MG Sublingual Tablet 7 Active Gabapentin 100 MG Oral Capsule ORAL gabapentin 100 MG Oral CapsuleOriginal Medicationgabapentin 100 MG Oral Capsule *Reorder from [employer] for eRx and Interaction Alerts* 7 Active Gabapentin 300 MG Capsule TAKE 1 CAPSULE BY MOUTH 2-3 TIMES PER DAY; Duration: 30 Active Immunizations Vaccine Route Administration Date Status Comme nts Influenza, high dose seasonal Unknown 05/21/2020 Admini stered Pneumococcal conjugate PCV 13 Unknown 05/21/2020 Admini stered Social History Social History Additional Details Category Social Info Options Details Migrated Social History Migrated Social History Smoking Status : Never smoked , History of tobacco use : Vital Signs Height-cm 162.56 cm 11/29/2024 Weight-kg 89.81 kg 11/29/2024 Height 64 in 11/29/2024 Weight 198 lbs 11/29/2024 BMI 33.98 kg/m2 11/29/2024 Encounters Encounter Location Date Provider Diagnosis [facility] [address] [place] [id number] 02/28/2025 MATT SNOOK Tinea unguium B35.1 ; Acquired keratosis [keratoderma] palmaris et plantaris L85.1 ; Other hereditary and idiopathic neuropathies G60.8 ; Atherosclerosis of [place] arteries of extremities with intermittent claudication, bilateral legs I70.213 ; Pain in right foot M79.671 ; Pain in left foot M79.672 and Type 2 diabetes mellitus with other diabetic neurological complication E11.49 [facility] [address] [place], [place] [id number] 08/23/2024 MATT SNOOK Tinea unguium B35.1 ; Acquired keratosis [keratoderma] palmaris et plantaris L85.1 ; Other hereditary and idiopathic neuropathies G60.8 ; Atherosclerosis of [place] arteries of extremities with intermittent claudication, bilateral legs I70.213 ; Pain in right foot M79.671 ; Pain in left foot M79.672 and Type 2 diabetes mellitus with other diabetic neurological complication E11.49 [facility] [address] [place] [id number] 09/27/2024 MATT SNOOK Other hereditary and idiopathic neuropathies G60.8 ; Pain in right foot M79.671 and Left foot pain M79.672 [facility] [address] [place] [id number] 11/29/2024 MATT SNOOK Other hereditary and idiopathic neuropathies G60.8 ; Fungal infection of nail B35.1 ; Acquired keratoderma L85.1 ; Pain in right foot M79.671 and Left foot pain M79.672 [facility] [address] [facility] [address] [place], [place] [id number] 08/14/2024 MATT SNOOK [facility] [address] [facility] [address] [place], [place] [id number] 12/27/2024 MATT SNOOK Assessments Encounter Date Diagnosis (ICD Code) Assessment Notes Treatment Notes Treatment Clinical Notes Section Notes 08/23/2024 Tinea unguium (ICD-10 - B35.1) 08/23/2024 Acquired keratosis [keratoderma] palmaris et plantaris (ICD-10 - L85.1) 09/27/2024 Other hereditary and idiopathic neuropathies (ICD-10 - 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 B6 And B12: Recommend that the patient take over the counter Vitamin B6 and B12 and Alpha Lipoic Acid. B6 pills should be taken 2-3 times a day. Vitamin B12 should be taken once a day as an under the tongue lozenge. 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 B6 And B12: Recommend that the patient take over the counter Vitamin B6 and B12 and Alpha Lipoic Acid. B6 pills should be taken 2-3 times a day. Vitamin B12 should be taken once a day as an under the tongue lozenge. 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) 08/23/2024 Atherosclerosis of [place] arteries of extremities with intermittent claudication, bilateral legs (ICD-10 - I70.213) 11/29/2024 Pain in right foot (ICD-10 - M79.671) 02/28/2025 Atherosclerosis of [place] arteries of extremities with intermittent claudication, bilateral legs (ICD-10 - I70.213) 02/28/2025 Pain in right foot (ICD-10 - M79.671) 11/29/2024 Left foot pain (ICD-10 - M79.672) 08/23/2024 Pain in right foot (ICD-10 - M79.671) 08/23/2024 Pain in left foot (ICD-10 - M79.672) 02/28/2025 Pain in left foot (ICD-10 - [...] how she does with 900mg per day 08/23/2024 Type 2 diabetes mellitus with other diabetic neurological complication (ICD-10 - E11.49) B6 And B12: Recommend that the patient take over the counter Vitamin B6 and B12. B6 pills should be taken 2-3 times a day. Vitamin B12 should be taken once a day as an under the tongue lozenge. Educated patient on how to gradually increase her gabapentin daily dosage by 100mg per week by adding extra to the end of the day, then middle of the day, then beginning of the day. Patient is currently at 300mg per day. We will see how she does with 600mg per day Plan Of Treatment No Information Insurance Providers Payer Name Payer Address Payer Phone Subscriber Number Group Number Insured Name Patient Relationship to Insured Coverage Start Date Coverage End Date [employer] [address] [place] [phone] [id number] YOSHI PEDRO Self - patient is the insured
== END 2025-07-19 14:15 | disposition home or self-care (01) ==
PROVIDERS: PCP Family Medicine; Visit Provider Family Medicine
DX: M25.572 Pain in left ankle and joints of left foot (principal); W19.XXXD Unspecified fall, subsequent encounter
CPT/HCPCS: 73610